=== PATIENT | female | born 1930 | race Caucasian/White ===

== ENCOUNTER 2017-01-02 14:15 | Emergency (ER) | payer OTHER, MEDICARE ==
[2017-01-02 14:35] VITALS: TEMP 97.8; BMI 19.5
[2017-01-02 14:48] LABS: BASOPHIL 0.6 % (0-2.0); EOSINOPHIL 1.3 % (0-4.5); MCH 30.7 pg (25.7-33.7); MCHC 33.8 g/dl (32.0-36.0); NEUTROPHILS 65.2 % (42.8-82.8); PLATELET COUNT 135 K/MM3 (134-434); RDW 15.5 % (11.6-15.6); WHITE BLOOD COUNT 8.1 K/mm3 (4.0-10.8)
[2017-01-02 15:13] LABS: URINE APPEARANCE Clear; URINE BILIRUBIN Negative (NEGATIVE); URINE GLUCOSE (UA) Negative (NEGATIVE); URINE KETONE Negative (NEGATIVE); URINE LEUK ESTERASE Negative (NEGATIVE); URINE NITRITE Negative (NEGATIVE); URINE PROTEIN Negative (NEGATIVE); URINE UROBILINOGEN 0.2 (0.2-1.0)
[2017-01-02 15:16] LABS: URINE BLOOD Trace-intact (NEGATIVE); URINE COLOR LT.YELLOW
[2017-01-02 15:23] LABS: ALBUMIN 4.2 g/dl (3.5-5.0); ALK PHOS 78 U/L (32-92); ANION GAP 9 (8-16); BILIRUBIN,TOTAL 1.1 mg/dl (0.2-1.0); CO2 24 mmol/L (22-28); CREATININE 0.7 mg/dl (0.6-1.3); GLUCOSE,RANDOM 98 mg/dl (74-106); MAGNESIUM 1.6 mg/dL (1.8-2.4); PHOSPHOROUS 2.9 mg/dl (2.5-4.6); SGOT/AST 35 U/L (10-42); SGPT/ALT 20 U/L (10-40); TOT PROT 6.9 g/dl (6.4-8.3)
[2017-01-02 15:23] LABS: CPK(DFH) 38 IU/L (26-140)
[2017-01-02 16:06] LABS: TROPONIN I (DFP) < 0.03 ng/ml (0.03-0.50)
--- NOTE | 2017-01-02 16:14 | PDOC ---
Attending Attestation - Resident Resident Name: WhitneySuhail - ED Attending Attestation I have performed the following: I have examined & evaluated the patient, The case was reviewed & discussed with the resident, I agree w/resident's findings & plan, Exceptions are as noted - HPI HPI: 01/02/17 16:11 Agree with the resident's HPI as documented in the electronic medical record. - Physicial Exam PE: 01/02/17 16:12 Agree with the resident's physical examination as documented in the electronic medical record. - Medical Decision Making 01/02/17 16:12 86-year-old female with history of hypertension and coronary artery disease, aortic valve replacement and chronic dizziness who presents to the emergency Department with complaints of feeling off balance and feeling dehydrated. Differential diagnosis includes but is not limited to: CVA, intracranial process , electrolyte abnormality, dehydration, infection (pneumonia versus UTI), ACS, cardiac arrhythmia, toxic/metabolic derangement. Plan: 1. Labs 2. EKGshows normal sinus rhythm at 90 bpm with normal axis, intervals and no acute ST segment changes 3. Chest x-ray 4. CT head 5. Urine analysis 6. Observe and reevaluate Addendum: Labs are reviewed and are noted in the EMR. Chest x-ray and CT head are negative for acute process. The patient is feeling improved. The plan is to discharge the patient home with follow-up with her primary care physician within the next 2-3 days. I have advised the patient to return to the emergency department if her symptoms persist, worsen, or new symptoms arise.
[2017-01-02 16:43] LABS: CALCIUM 9.3 mg/dl (8.4-10.2)
[2017-01-02 17:03] VITALS: BP 164/52; PULSE 78
--- NOTE | 2017-01-02 17:28 | PDOC ---
History of Present Illness - General Chief Complaint: Lightheaded Stated Complaint: "FEEL WOBBLY..DEHYDRATED" Time Seen by Provider: 01/02/17 14:18 History Source: Patient, Family Exam Limitations: No Limitations - History of Present Illness Initial Comments: 01/02/17 17:18 86F with pmh of hypothyroidism, aortic valve replacement and double bypass presents with dizziness and complains of being off balance for she thinks is due to dehydration given her low thirst drive. She has had this problem before and is taking meclizine for chronic vertigo.l Patient denies recent trauma, fall, nausea, vomiting, dysuria or diarrhea, fever cough or viral syndrome. 01/02/17 17:29 01/02/17 17:33 Past History - Past Medical History Allergies/Adverse Reactions: Allergies Allergy/AdvReac Type Severity Reaction Status Date / Time azithromycin Allergy Verified 01/02/17 14:18 clindamycin Allergy Verified 01/02/17 14:18 diltiazem Allergy Verified 01/02/17 14:18 hydroxychloroquine Allergy Verified 01/02/17 14:18 lidocaine Allergy Verified 01/02/17 14:18 naproxen Allergy Verified 01/02/17 14:18 rosuvastatin calcium Allergy Verified 01/02/17 14:18 [From Crestor] Home Medications: Ambulatory Orders Aspirin [Aspirin EC] 81 mg PO DAILY 01/13/14 Atorvastatin Ca [Lipitor -] 40 mg PO HS 01/13/14 Cholecalciferol (Vitamin D3) [Vitamin D3] 2,000 unit PO DAILY 01/13/14 Levothyroxine [Synthroid -] 50 mcg PO DAILY 01/13/14 Meclizine HCl [Antivert -] 12.5 mg PO BID 12/19/14 Ubidecarenone [Co Q-10] 300 mg PO DAILY 12/19/14 Diltiazem HCl [Cartia Xt] 180 mg PO BID 01/02/17 Cardiac Disorders: Yes HTN: Yes Hypercholesterolemia: Yes Thyroid Disease: Yes - Surgical History Cardiac Surgery: Yes (AVR, CABG X2) - Psycho/Social/Smoking Cessation Hx Anxiety: No Suicidal Ideation: No Smoking History: Never smoked Have you smoked in the past 12 months: No Information on smoking cessation initiated: No Hx Alcohol Use: (glass of wine nightly) Substance Use Type: None *Physical Exam - Vital Signs Last Vital Signs Temp Pulse Resp BP Pulse Ox 97.8 F 78 22 164/52 99 01/02/17 14:15 01/02/17 17:02 01/02/17 17:02 01/02/17 17:02 01/02/17 14:15 - Physical Exam General Appearance: Yes: Nourished, Appropriately Dressed, Thin. No: Apparent Distress HEENT: positive: EOMI, SAMIR (wet/pink mucous membranes), Normal ENT Inspection Neck: positive: Supple. negative: Tender, Lymphadenopathy (R), Lymphadenopathy (L), Thyromegaly Respiratory/Chest: positive: Lungs Clear, Normal Breath Sounds. negative: Chest Tender, Respiratory Distress, Decreased Breath Sounds Cardiovascular: positive: Regular Rhythm, Regular Rate. negative: S1, S2 Gastrointestinal/Abdominal: positive: Normal Bowel Sounds, Flat, Soft. negative : Distended, Tenderness Musculoskeletal: positive: Normal Inspection Extremity: positive: Normal Capillary Refill, Normal Range of Motion, Pelvis Stable. negative: Pedal Edema, Swelling, Calf Tenderness, Erythema Integumentary: positive: Normal Color. negative: Clammy, Diaphoresis, Swelling Neurologic: positive: rural route carrier II-XII NML intact, Fully Oriented, Alert, Normal Mood/ Affect, Normal Response (romberg negative. Normal gait), Motor Strength 5/5 ED Treatment Course - LABORATORY CBC & Chemistry Diagram: 01/02/17 14:18 01/02/17 14:18 - ADDITIONAL ORDERS Additional order review: Laboratory Results 01/02/17 01/02/17 01/02/17 15:02 14:19 14:18 Sodium 134 L Potassium 3.8 Chloride 101 Carbon Dioxide 24 Anion Gap 9 BUN 14 Creatinine 0.7 Creat Clearance w eGFR > 60 Random Glucose 98 Calcium 9.3 Phosphorus 2.9 Magnesium 1.6 L Total Bilirubin 1.1 H D AST 35 D ALT 20 Alkaline Phosphatase 78 D Creatine Kinase 38 Troponin I < 0.03 L Total Protein 6.9 Albumin 4.2 Urine Color Lt.yellow Urine Appearance Clear Urine pH 7.0 Ur Specific Victor 1.010 Urine Protein Negative Urine Glucose (UA) Negative Urine Ketones Negative Urine Blood Trace-intact H Urine Nitrite Negative Urine Bilirubin Negative Urine Urobilinogen 0.2 Ur Leukocyte Esterase Negative 01/02/17 14:18 RBC 3.79 MCV 91.0 MCHC 33.8 RDW 15.5 MPV 8.0 D Neutrophils % 65.2 Lymphocytes % 25.9 Monocytes % 7.0 Eosinophils % 1.3 Basophils % 0.6 Medical Decision Making - Medical Decision Making 01/02/17 17:33 86F with pmh of hypothyroidism, aortic valve replacement and double bypass presents with dizziness and complains of being off balance for she thinks is due to dehydration given her low thirst drive. She has had this problem before and is taking meclizine for chronic vertigo. Patient denies recent trauma, fall, nausea, vomiting, dysuria or diarrhea, fever cough or viral syndrome. CBC, CMP neg, R/O metabolic etiology Pending TSH - follow up with primary in 2-[address] r/o stroke FORMULATION CHEMIST etiology, Negative EKG negative r/o NM CXR r/o pneumonia negative Follow up with primary, and product marketing programs manager for blood pressure control. Come back if symptoms reoccur until then. 01/02/17 17:40 *DC/Admit/Observation/Transfer Diagnosis at time of Disposition: Dehydration, Dizziness, Dehydration, mild - Discharge Dispostion Condition at time of disposition: Good Admit: No - Referrals Referrals: Kenney Holguin MD [Primary Care Provider] - - Patient Instructions Printed Discharge Instructions: Dehydration
[2017-01-02 18:39] LABS: URINE RBC 0-2 /hpf (0-3); URINE WBC 0-1 (3-5)
--- NOTE | 2017-01-04 15:12 | EKG ---
Test Reason : Blood Pressure : / mmHG Vent. Rate : 092 BPM Atrial Rate : 092 BPM P-R Int : 170 ms QRS Dur : 088 ms QT Int : 372 ms P-R-T Axes : 079 048 102 degrees QTc Int : 460 ms SINUS RHYTHM POSSIBLE LEFT ATRIAL ENLARGEMENT NO PREVIOUS ECGS AVAILABLE Confirmed by RADHA DAUGHERTY MD ([id number] on 01/04/2017 3:12:38 PM Referred By: BARBRA WHEELER Confirmed By:RADHA DAUGHERTY MD
== END 2017-01-02 17:49 | disposition home or self-care (01) ==
LOC: FER 14:15
DX: E86.0 Dehydration (principal); R42 Dizziness and giddiness; E03.9 Hypothyroidism, unspecified; I10 Essential (primary) hypertension; E78.00 Pure hypercholesterolemia, unspecified; I51.9 Heart disease, unspecified
CPT/HCPCS: 36415; 70450-TC; 71010-TC; 80053; 81003; 81015; 82550; 83735; 84100; 84443; 84484; 85025; 93005; 99284-25

== ENCOUNTER 2018-07-24 12:14 | Emergency (ER) | payer OTHER, MEDICARE ==
[2018-07-24 12:31] VITALS: TEMP 98.1; BMI 18.4
--- NOTE | 2018-07-24 12:31 | PDOC ---
Attending Attestation - Resident Resident Name: Wm Davis - HPI HPI: 07/24/18 18:47 Pt presents to the ED complaining of intermittent chest discomfort x 1 week. She describes the sensation as a "wave" that goes from her chest to her back. Denies shortness of breath. Denies pain. - Physicial Exam PE: 07/24/18 18:52 Agree with resident exam. Patient is alert and in no acute distress. Lungs are clear. Heart: + regular rate and rhythm, + systolic murmur. - Medical Decision Making 07/24/18 19:01 Pt presents to the ED complaining of transient episodes of chest discomfort for one week. Symptoms are very atypical of cardiac disease. EKG and CXR are negative Will discharge home with referral to PMD. Case discussed with hand stamper.
--- NOTE | 2018-07-24 12:43 | PDOC ---
History of Present Illness - General Chief Complaint: Pain, Acute Stated Complaint: CHEST PAIN Time Seen by Provider: 07/24/18 12:17 - History of Present Illness Initial Comments: 07/24/18 12:38 Ms. 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 Patient reports she has additionally had 6 month history of KACI LE weakness that has worsened in the past few days. Denies any other associated symptoms. The patient denies chest pain, shortness of breath, headache and dizziness. Denies fever, chills, nausea, vomit, diarrhea and constipation. Denies dysuria, frequency, urgency and hematuria. Past History - Past Medical History Allergies/Adverse Reactions: Allergies Allergy/AdvReac Type Severity Reaction Status Date / Time azithromycin Allergy Verified 07/24/18 12:15 clindamycin Allergy Verified 07/24/18 12:15 diltiazem Allergy Verified 07/24/18 12:15 hydroxychloroquine Allergy Verified 07/24/18 12:15 lidocaine Allergy Verified 07/24/18 12:15 naproxen Allergy Verified 07/24/18 12:15 rosuvastatin calcium Allergy Verified 07/24/18 12:15 [From Crestor] Home Medications: Ambulatory Orders Aspirin [Aspirin EC] 81 mg PO DAILY 01/13/14 Levothyroxine [Synthroid -] 50 mcg PO DAILY 01/13/14 Diltiazem HCl [Cartia Xt] 180 mg PO BID 01/02/17 Cardiac Disorders: Yes COPD: No HTN: Yes Hypercholesterolemia: Yes Thyroid Disease: Yes - Surgical History Cardiac Surgery: Yes (AVR, CABG X2) - Suicide/Smoking/Psychosocial Hx Smoking History: Never smoked Have you smoked in the past 12 months: No Hx Alcohol Use: No Drug/Substance Use Hx: No Substance Use Type: None Review of Systems - Review of Systems Comments:: 07/24/18 12:42 GENERAL/CONSTITUTIONAL: No fever or chills. No weakness. HEAD, EYES, EARS, NOSE AND THROAT: No change in vision. No ear pain or discharge. No sore throat. CARDIOVASCULAR: +Chest "sensation" (patient refuses to call it pain) radiating to back RESPIRATORY: No cough, wheezing, or hemoptysis. GASTROINTESTINAL: No nausea, vomiting, diarrhea or constipation. GENITOURINARY: No dysuria, frequency, or change in urination. MUSCULOSKELETAL: No joint or muscle swelling or pain. No neck or back pain. SKIN: No rash NEUROLOGIC: No headache, vertigo, loss of consciousness, or change in strength/ sensation. ENDOCRINE: No increased thirst. No abnormal weight change HEMATOLOGIC/LYMPHATIC: No anemia, easy bleeding, or history of blood clots. ALLERGIC/IMMUNOLOGIC: No hives or skin allergy. *Physical Exam - Vital Signs Last Vital Signs Temp Pulse Resp BP Pulse Ox 98.1 F 78 18 189/73 H 98 07/24/18 12:15 07/24/18 12:15 07/24/18 12:15 07/24/18 12:15 07/24/18 12:15 - Physical Exam Comments: 07/24/18 12:42 GENERAL: Awake, alert, and fully oriented, in no acute distress HEAD: No signs of trauma, normocephalic, atraumatic EYES: PERRLA, EOMI, sclera anicteric, conjunctiva clear ENT: Auricles normal inspection, hearing grossly normal, nares patent, oropharynx clear without exudates. Moist mucosa NECK: Normal ROM, supple, no lymphadenopathy, JVD, or masses LUNGS: No distress, speaks full sentences, clear to auscultation bilaterally HEART: +Systolic murmur c/w replaced aortic valve. Regular rate and rhythm, normal S1 and S2, no murmurs, rubs or gallops, peripheral pulses normal and equal bilaterally. ABDOMEN: Soft, nontender, normoactive bowel sounds. No guarding, no rebound. No masses EXTREMITIES: Normal inspection, Normal range of motion, no edema. No clubbing or cyanosis. NEUROLOGICAL: Cranial nerves II through XII grossly intact. Normal speech, normal gait, no focal sensorimotor deficits SKIN: Warm, Dry, normal turgor, no rashes or lesions noted. Moderate Sedation - Procedure Monitoring Vital Signs: Procedure Monitoring Vital Signs Temperature 98.1 F 07/24/18 12:15 Pulse Rate 78 07/24/18 12:15 Respiratory Rate 18 07/24/18 12:15 Blood Pressure 189/73 H 07/24/18 12:15 O2 Sat by Pulse Oximetry (%) 98 07/24/18 12:15 ED Treatment Course - LABORATORY CBC & Chemistry Diagram: 07/24/18 12:43 07/24/18 12:43 Medical Decision Making - Medical Decision Making 07/24/18 13:30 Ms. Santana is an 87 yo female w/ pmh as described who presents for evaluation of chest symptoms in the setting of significant cardiac history. Patient evaluated with labs as below for r/o cardiac, infectious, or metabolic process. All labs grossly wnl, EKG unchanged from previous, CXR negative. Discussed patient with ib[employer] bpm developer (Dr. Cerda") at [phone] who would like outpatient follow-up for stress test. Patient verbalized understanding and agreement and will comply. No concern for acute process at this time. Discharging to home. *DC/Admit/Observation/Transfer Diagnosis at time of Disposition: Sensation of chest pressure - Discharge Dispostion Disposition: HOME Condition at time of disposition: Stable - Referrals Referrals: Kenney Holguin MD [Primary Care Provider] - - Patient Instructions Printed Discharge Instructions: DI for Chest Pain Additional Instructions: You were evaluated today in the ER for your symptoms. No concerning findings were found on laboratory evaluation, chest Xray, or EKG. We discussed your presentation with your ibm bpm developer who recommended calling for an outpatient stress test next week. Please follow-up as discussed as soon as possible. Return to ER if any pain, fever, chills, shortness of breath, or other concerning symptoms. - Post Discharge Activity
[2018-07-24 12:52] LABS: BASO % 0.6 % (0-2.0); EOS % 0.8 % (0-4.5); HEMATOCRIT 38.3 % (32.4-45.2); HEMOGLOBIN 12.7 GM/dl (10.7-15.3); LYMPH % 23.3 % (8-40); MCH 31.9 pg (25.7-33.7); MCHC 33.2 g/dl (32.0-36.0); MEAN CELL VOLUME 96.1 fl (80-96); MONO % 8.4 % (3.8-10.2); NEUT % 66.9 % (42.8-82.8); PLATELET COUNT 152 K/MM3 (134-434); RBC 3.99 M/mm3 (3.60-5.2); RDW 13.9 % (11.6-15.6); WHITE BLOOD COUNT 6.6 K/mm3 (4.0-10.8)
[2018-07-24 12:59] LABS: ALBUMIN 4.4 g/dl (3.4-5.0); ALK PHOS 89 U/L (45-117); ANION GAP 11 MMOL/L (8-16); BILIRUBIN,TOTAL 0.8 mg/dl (0.2-1); BLOOD UREA NITROGEN 20 mg/dl (7-18); CALCIUM 9.6 mg/dl (8.5-10); CHLORIDE 102 mmol/L (98-107); CO2 23 mmol/L (21-32); CREATININE 0.7 mg/dl (0.55-1.3); GLUCOSE,RANDOM 104 mg/dl (74-106); POTASSIUM 4.1 mmol/L (3.5-5.1); SGOT/AST 31 U/L (15-37); SGPT/ALT 17 U/L (13-61); SODIUM 136 mmol/L (136-145); TOT PROT 7.4 g/dl (6.4-8.2)
[2018-07-24 13:39] VITALS: BP 179/81; PULSE 71
--- NOTE | 2018-07-25 14:43 | EKG ---
Test Reason : Blood Pressure : / mmHG Vent. Rate : 079 BPM Atrial Rate : 079 BPM P-R Int : 146 ms QRS Dur : 088 ms QT Int : 410 ms P-R-T Axes : 056 037 080 degrees QTc Int : 470 ms SINUS RHYTHM WITH PREMATURE ATRIAL COMPLEXES POSSIBLE LEFT ATRIAL ENLARGEMENT CANNOT RULE OUT INFERIOR INFARCT (CITED ON OR BEFORE 24-JUL-2018) ABNORMAL ECG Confirmed by Yeison Yusuf MD ([id number]) on 07/25/2018 2:43:20 PM Referred By: Confirmed By:Yeison Yusuf MD
== END 2018-07-24 13:47 | disposition home or self-care (01) ==
LOC: FER 12:14
DX: R07.89 Other chest pain (principal); I10 Essential (primary) hypertension; E78.5 Hyperlipidemia, unspecified; E03.9 Hypothyroidism, unspecified; Z95.2 Presence of prosthetic heart valve; Z95.1 Presence of aortocoronary bypass graft; Z88.1 Allergy status to other antibiotic agents; Z88.8 Allergy status to other drugs, medicaments and biological substances; Z79.82 Long term (current) use of aspirin
CPT/HCPCS: 36415; 71046-TC-FY; 80053; 82550; 84484; 85025; 93005; 99282-25

== ENCOUNTER 2018-09-09 08:31 | Emergency (ER) | payer OTHER, MEDICARE ==
--- NOTE | 2018-09-09 08:48 | PDOC ---
History of Present Illness - General Chief Complaint: Tachycardia Stated Complaint: RAPID HEART BEAT Time Seen by Provider: 09/09/18 08:48 - History of Present Illness Initial Comments: 09/09/18 08:50 Chief complaint: Rapid heartbeat History of present illness: After awakening this morning, patient felt palpitations which she felt was a rapid heartbeat, sensation persisted until arrival in the ER, but now has resolved. She has had episodes of what appeared to be some kind of tachycardia, is consulting a draw in hand, and had a monitor placed on her chest yesterday. She is uncertain exactly what the rhythm has been , though she recalls no mention of "fibrillation" she was placed on no new medication as yet since the onset of her symptoms. Review of systems: Denies any associated chest pain, shortness of breath, nausea , diaphoresis, generalized weakness or fatigue, malaise, abdominal pain, vomiting or diarrhea, visual or focal neurologic symptoms, dizziness, lightheadedness, vertigo. Remainder systems reviewed and negative Past medical history: Valve replacement, CAD with bypass at the same time, as well as pericardial stripping. Elevated cholesterol. Hypothyroidism. High blood pressure. Medications: Lipitor, Synthroid, Cartia XT, baby aspirin, vitamin D. Social history: No tobacco alcohol or nonprescription drugs. No dementia. Fully ambulatory and cares for self. Family history: Reviewed and noncontributory including early coronary artery disease, metabolic disease including diabetes, and cancer ALLERGIES: Naproxen, lisinopril, azithromycin, lidocaine, epinephrine, Crestor, diltiazem CD, clindamycin, hydrochlorothiazide, Zetia Physical exam: Alert and oriented well-developed well-nourished no acute distress cheerful and cooperative. She is asymptomatic at present Afebrile, vital signs normal including heart rate of 90 and regular apical PERRLA, fundi benign, ENT clear Neck supple without bruit mass or nodes Chest clear to P&A CV regular 90/m without rub or gallop pulses full and symmetric no JVD or edema no bruits there is a 2/6 early to mid systolic murmur at the left sternal border radiating to the apex. Abdomen nondistended. Soft without masses tenderness organomegaly Neurological C2 to 12 intact. Strength full and symmetric. No focal sensory or motor deficits. Gait stable and unimpaired Extremities no CCE Skin clear, no rash, adequate turgor and wet mucous membranes Impression: Possible episode of tachycardia this morning, now resolved. Under the care of a draw in hand, currently wearing a Holter monitor. Patient was not placed on any new medication at that time that her symptoms began several weeks ago, therefore it is likely that no serious arrhythmia was considered. There are no associated cardiac symptoms suggestive of acute coronary syndrome Plan: EKG and cardiac enzymes, monitoring, CBC and chemistries, and further evaluation depending on results. Contact draw in hand for further history and recommendations.. Past History - Past Medical History Allergies/Adverse Reactions: Allergies Allergy/AdvReac Type Severity Reaction Status Date / Time azithromycin Allergy Verified 07/24/18 12:15 clindamycin Allergy Verified 07/24/18 12:15 diltiazem Allergy Verified 07/24/18 12:15 ezetimibe [From Zetia] Allergy Verified 09/09/18 08:33 hydroxychloroquine Allergy Verified 07/24/18 12:15 lidocaine Allergy Verified 07/24/18 12:15 naproxen Allergy Verified 07/24/18 12:15 rosuvastatin calcium Allergy Verified 07/24/18 12:15 [From Crestor] Home Medications: Ambulatory Orders Aspirin [Aspirin EC] 81 mg PO DAILY 01/13/14 Levothyroxine [Synthroid -] 50 mcg PO DAILY 01/13/14 Atorvastatin Ca [Lipitor] 20 mg PO HS 09/09/18 Cholecalciferol (Vitamin D3) [D-2000] 2,000 unit PO DAILY 09/09/18 Diltiazem HCl [Cartia Xt] 180 mg PO BID 09/09/18 Ubidecarenone [Co Q-10] 300 mg PO DAILY 09/09/18 Cardiac Disorders: Yes COPD: No HTN: Yes Hypercholesterolemia: Yes Thyroid Disease: Yes - Surgical History Cardiac Surgery: Yes (AVR, CABG X2) - Suicide/Smoking/Psychosocial Hx Smoking History: Never smoked Have you smoked in the past 12 months: No Hx Alcohol Use: No Drug/Substance Use Hx: No Substance Use Type: None *Physical Exam - Vital Signs Last Vital Signs Temp Pulse Resp BP Pulse Ox 97.8 F 77 20 184/59 H 98 09/09/18 10:07 09/09/18 10:07 09/09/18 10:07 09/09/18 10:07 09/09/18 10:07 ED Treatment Course - LABORATORY CBC & Chemistry Diagram: 09/09/18 09:19 09/09/18 09:19 - ADDITIONAL ORDERS Additional order review: Laboratory Results 09/09/18 09/09/18 09:19 09:19 Sodium 137 Potassium 4.1 Chloride 104 Carbon Dioxide 26 Anion Gap 7 L BUN 13 Creatinine 0.7 Creat Clearance w eGFR 79.53 Random Glucose 104 Calcium 8.9 Total Bilirubin 1.0 AST 30 ALT 16 Alkaline Phosphatase 92 Creatine Kinase 28 Troponin I 0.03 Total Protein 7.0 Albumin 3.9 09/09/18 09:19 RBC 3.94 MCV 96.3 H MCHC 32.7 RDW 14.0 MPV 8.8 Neutrophils % 63.9 Lymphocytes % 21.8 Monocytes % 11.8 H Eosinophils % 2.1 Basophils % 0.4 Medical Decision Making - Medical Decision Making 09/09/18 10:19 EKG shows normal sinus rhythm 85/m, normal axes and intervals, biatrial enlargement, Q waves in the inferior leads, which were present in prior EKGs and which probably indicates old inferior wall HI, and nonspecific ST-T wave changes in the lateral leads, which have also been periodically present in the past, most notably in EKGs from 2017 in our files. CBC, chemistries, and cardiac enzymes without significant abnormalities Patient has been clinically stable, without cardiac related symptoms, and without tachycardia on the monitor since admission. Her draw in hand in [facility] was contacted by phone after faxing him the present EKG. He is evaluating the patient for paroxysmal atrial fibrillation and has decided to prescribe a rate control drugs. He recommends discharge and he will follow closely. Patient is fully ambulatory, asymptomatic, in no pain or other distress at discharge with daughter to follow-up as directed 09/09/18 10:22 Her systolic blood pressure, however, remains moderately elevated, and she is advised to have it rechecked in 24 hours, take her blood pressure medication as directed, rest and avoid vigorous physical activity until stable. Her draw in hand is aware. *DC/Admit/Observation/Transfer Diagnosis at time of Disposition: Intermittent palpitations - Discharge Dispostion Disposition: HOME Condition at time of disposition: Stable Decision to Admit order: No - Referrals - Patient Instructions Printed Discharge Instructions: DI for Palpitations Additional Instructions: See your draw in hand as soon as possible for further evaluation. He has been contacted by phone, has decided to prescribe additional medication. Have your blood pressure rechecked again in 24 hours. In the meantime rest relaxation and no vigorous physical activity. If it remains significantly elevated, Em draw in hand immediately. If your symptoms recur, or you develop additional symptoms of heart disease such as chest pain, shortness of breath, nausea, diaphoresis, return immediately to the closest emergency room. - Post Discharge Activity
[2018-09-09 08:50] VITALS: TEMP 97.8; BMI 18.8
[2018-09-09 09:37] LABS: BASO % 0.4 % (0-2.0); EOS % 2.1 % (0-4.5); HEMOGLOBIN 12.4 GM/dl (10.7-15.3); LYMPH % 21.8 % (8-40); MCH 31.4 pg (25.7-33.7); MCHC 32.7 g/dl (32.0-36.0); MEAN CELL VOLUME 96.3 fl (80-96); MEAN PLT VOLUME 8.8 fl (7.5-11.1); MONO % 11.8 % (3.8-10.2); NEUT % 63.9 % (42.8-82.8); PLATELET COUNT 146 K/MM3 (134-434); RBC 3.94 M/mm3 (3.60-5.2); WHITE BLOOD COUNT 5.8 K/mm3 (4.0-10.8)
[2018-09-09 09:44] LABS: ALBUMIN 3.9 g/dl (3.4-5.0); ALK PHOS 92 U/L (45-117); ANION GAP 7 MMOL/L (8-16); BLOOD UREA NITROGEN 13 mg/dl (7-18); CALCIUM 8.9 mg/dl (8.5-10); CHLORIDE 104 mmol/L (98-107); CO2 26 mmol/L (21-32); CREATININE 0.7 mg/dl (0.55-1.3); GLUCOSE,RANDOM 104 mg/dl (74-106); POTASSIUM 4.1 mmol/L (3.5-5.1); SGOT/AST 30 U/L (15-37); SGPT/ALT 16 U/L (13-61); SODIUM 137 mmol/L (136-145)
[2018-09-09 10:43] VITALS: BP 188/59; PULSE 76
--- NOTE | 2018-09-10 11:52 | EKG ---
Test Reason : Blood Pressure : / mmHG Vent. Rate : 085 BPM Atrial Rate : 085 BPM P-R Int : 154 ms QRS Dur : 086 ms QT Int : 396 ms P-R-T Axes : 078 054 084 degrees QTc Int : 471 ms NORMAL SINUS RHYTHM BIATRIAL ENLARGEMENT CANNOT RULE OUT INFERIOR INFARCT (CITED ON OR BEFORE 24-JUL-2018) ABNORMAL ECG WHEN COMPARED WITH ECG OF 24-JUL-2018 12:47, PREMATURE ATRIAL COMPLEXES ARE NO LONGER PRESENT NONSPECIFIC T WAVE ABNORMALITY, WORSE IN LATERAL LEADS Confirmed by DELLA BESS, MICHEAL ([id number]) on 09/10/2018 11:51:34 AM Referred By: HANY LUI Confirmed By:MICHEAL HULL MD
== END 2018-09-09 11:02 | disposition home or self-care (01) ==
LOC: FER 08:31
DX: R00.2 Palpitations (principal); I10 Essential (primary) hypertension; E78.00 Pure hypercholesterolemia, unspecified; E07.9 Disorder of thyroid, unspecified; I51.9 Heart disease, unspecified; I25.10 Atherosclerotic heart disease of native coronary artery without angina pectoris
CPT/HCPCS: 36415; 80053; 82550; 84484; 85025; 93005; 99284-25

== ENCOUNTER 2018-12-11 21:23 | Inpatient (IN) | payer OTHER, MEDICARE ==
--- NOTE | 2018-12-11 22:20 | PDOC ---
History of Present Illness - General Chief Complaint: Pain, Acute Stated Complaint: GAS PAIN Time Seen by Provider: 12/11/18 21:25 - History of Present Illness Initial Comments: This 88-year-old woman with a history of HTN/CAD/AVR/hypothyroidism/HLD presents with several hour history of mid epigastric pain and mild, transient nausea. The patient describes pain as occurring at approximately 4 PM today soon after she strained having a bowel movement. Large amount of soft stool was passed (no blood/mucus) after an unusual amount of straining. She denies any pain or nausea prior to the BM. She describes pain as worse in the midline epigastrium, steady and radiating to her back bilaterally. She has not been able to pass gas since onset of pain. She states she has never felt this pain before. When she arrived in the ER, she had a brief episode of nausea that resolved spontaneously.no chest pain/shortness of breath noted Multiple gallstones were seen on previous CT dated 06/25/17. The patient was unaware that she had gallbladder disease and denies any previous history of postprandial right upper quadrant or epigastric pain. No history of abdominal surgical procedure; No history of SBO Past History - Past Medical History Allergies/Adverse Reactions: Allergies Allergy/AdvReac Type Severity Reaction Status Date / Time azithromycin Allergy Verified 07/24/18 12:15 clindamycin Allergy Verified 07/24/18 12:15 diltiazem Allergy Verified 07/24/18 12:15 ezetimibe [From Zetia] Allergy Verified 09/09/18 08:33 hydroxychloroquine Allergy Verified 07/24/18 12:15 lidocaine Allergy Verified 07/24/18 12:15 naproxen Allergy Verified 07/24/18 12:15 rosuvastatin calcium Allergy Verified 07/24/18 12:15 [From Crestor] Home Medications: Ambulatory Orders Aspirin [Aspirin EC] 81 mg PO DAILY 01/13/14 Levothyroxine [Synthroid -] 50 mcg PO DAILY 01/13/14 Atorvastatin Ca [Lipitor] 20 mg PO HS 09/09/18 Cholecalciferol (Vitamin D3) [D-2000] 2,000 unit PO DAILY 09/09/18 Diltiazem HCl [Cartia Xt] 180 mg PO BID 09/09/18 Ubidecarenone [Co Q-10] 300 mg PO DAILY 09/09/18 Cardiac Disorders: Yes COPD: No HTN: Yes Hypercholesterolemia: Yes Thyroid Disease: Yes - Surgical History Cardiac Surgery: Yes (AVR, CABG X2) - Suicide/Smoking/Psychosocial Hx Smoking History: Unknown if ever smoked Have you smoked in the past 12 months: No Information on smoking cessation initiated: No Hx Alcohol Use: No Drug/Substance Use Hx: No Substance Use Type: None Review of Systems - Review of Systems Able to Perform ROS?: Yes Comments:: 12 point review of systems is negative except for what is noted in the history of present illness *Physical Exam - Vital Signs Last Vital Signs Temp Pulse Resp BP Pulse Ox 98.2 F 90 18 183/90 H 100 12/11/18 21:28 12/11/18 21:28 12/11/18 21:28 12/11/18 21:28 12/11/18 21:28 - Physical Exam Comments: GENERAL:Elderly female, alert and oriented X3 HEAD: Normal with no signs of trauma. EYES: PERRLA, EOMI, sclera anicteric, conjunctiva clear. ENT: Ears normal, nares patent, oropharynx clear without exudates. Dry mucous membranes. NECK: Normal range of motion, supple without lymphadenopathy, JVD, or masses. LUNGS: Breath sounds equal, clear to auscultation bilaterally. No wheezes, and no crackles. HEART:Regular rate and rhythm, normal S1 and S2 without murmur, rub or gallop. ABDOMEN:.normal bowel sounds Mild epigastric tenderness without rebound or guarding; No masses EXTREMITIES: Normal range of motion, no edema. No clubbing or cyanosis. No erythema, or tenderness. NEUROLOGICAL: Cranial nerves II through XII grossly intact. Normal speech. No focal neurological deficits. MUSCULOSKELETAL: Back non-tender to palpation, no CVA tenderness SKIN: Warm, Dry, normal turgor, no rashes or lesions noted. ED Treatment Course - LABORATORY CBC & Chemistry Diagram: 12/11/18 23:00 12/11/18 23:00 Progress Note - Progress Note Progress Note: This 88-year-old woman with multiple medical problems but no significant previous history of gastrointestinal issues presents with several hours of epigastric pain. Previous CT had shown multiple small gallstones and mild distal thoracic aortic dilatation; exam as above showed mild tenderness of the epigastrium but no other significant findings Differential diagnosis of this patient's pain includes gastritis/peptic ulcer disease, biliary colic/acute cholecystitis, early small bowel obstruction, acute pancreatitis, acute diverticulitis,progression of aortic aneurysm One view chest x-ray reveals mild hyperaeration of lungs but no acute abnormalities Flat and upright xray of abdomen performed: no abnormal gas pattern seen.Multiple small, radiodense stones in RUQ Laboratory evaluation notable for amylase 790 and lipase of 4793. 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 multiple gallstones are again seen with possible slight thickening of gallbladder wall. No other significant abnormalities. Clinical presentation consistent with acute pancreatitis , likely biliary etiology 12/12/18 02:21 Results discussed with the patient and her daughter. They understand that the patient needs to be admitted to be kept NPO and for close monitoring of her clinical course. Patient states that she will only be admitted to [facility] and refuses admission to [facility] 12/12/18 03:06 .The patient was contacted by telephone by and reasons for admission to [facility] discussed. Patient has agreed to be admitted to [facility]. Ultrasound of gallbladder and liver, originally scheduled now, will be performed in the morning. Patient will be admitted to [address] [place] [address] 71 Morphine sulfate 2 mg IV given for pain control 12/12/18 05:33 Patient transferred via BLS ambulance to [facility], alert and comfortable. in stable condition. She states that the one dose of Morphine 2 mg IV was effective so far in control of her pain. Nausea has not recurred *DC/Admit/Observation/Transfer Diagnosis at time of Disposition: Acute pancreatitis Qualifiers: Pancreatitis type: biliary Acute pancreatitis complication: no infection or necrosis Qualified Code(s): K85.10 - Biliary acute pancreatitis without necrosis or infection - Discharge Dispostion Condition at time of disposition: Stable Decision to Admit order: Yes - Referrals - Patient Instructions - Post Discharge Activity
[2018-12-11] MEDS ORDERED: SODIUM CHLORIDE 1,000 ML IV SCH (22:30)
[2018-12-11] MEDS ORDERED: METOCLOPRAMIDE HCL INJECTION 10 MG/2 ML VIAL IVPB ONE (23:03)
[2018-12-11] MEDS ORDERED: METOCLOPRAMIDE HCL INJECTION 10 MG/2 ML VIAL ONE (23:04)
[2018-12-11 23:13] LABS: BASO % 0.1 % (0-2.0); EOS % 0.2 % (0-4.5); HEMATOCRIT 40.6 % (32.4-45.2); HEMOGLOBIN 13.2 GM/dl (10.7-15.3); LYMPH % 12.1 % (8-40); MCH 31.1 pg (25.7-33.7); MCHC 32.4 g/dl (32.0-36.0); MEAN PLT VOLUME 8.7 fl (7.5-11.1); MONO % 6.8 % (3.8-10.2); NEUT % 80.8 % (42.8-82.8); PLATELET COUNT 176 K/MM3 (134-434); RBC 4.23 M/mm3 (3.60-5.2); RDW 14.1 % (11.6-15.6); WHITE BLOOD COUNT 11.6 K/mm3 (4.0-10.8)
[2018-12-11 23:22] LABS: INR 0.96 (0.82-1.09); PROTHROMBIN TIME (PATIENT) 10.8 SEC (10.2-13.0)
[2018-12-11 23:37] LABS: ALBUMIN 4.4 g/dl (3.4-5.0); CALCIUM 9.7 mg/dl (8.5-10); CREATININE 0.9 mg/dl (0.55-1.3); POTASSIUM 3.9 mmol/L (3.5-5.1); TOT PROT 7.8 g/dl (6.4-8.2)
[2018-12-12] MEDS ORDERED: SODIUM CHLORIDE 500 ML IV STA (02:04)
[2018-12-12] MEDS ORDERED: morphine CARPU-JECT 2 MG/1 ML DISP.SYRIN IVPUSH ONE (03:00)
[2018-12-12] MEDS ORDERED: morphine SULFATE 4 MG/ML VIAL ONE (03:10)
--- NOTE | 2018-12-12 05:56 | PN ---
Progress Note (short form) - Note Progress Note: Spoke with [facility]; patient with apparent gallstone pancreatitis with elevated LFTs; she initially refused XF to [facility] but when explained that she would likely need GI/surgical eval with complex diagnostics she was agreeable. Awaiting XF. Visit type - Emergency Visit Emergency Visit: Yes ED Registration Date: 12/12/18 Care time: The patient presented to the Emergency Department on the above date and was hospitalized for further evaluation of their emergent condition. - New Patient This patient is new to me today: Yes Date on this admission: 12/12/18 - Critical Care Critical Care patient: No
[2018-12-12] MEDS ORDERED: SODIUM CHLORIDE 1,000 ML IV SCH ×2 (08:06→11:15)
[2018-12-12 08:42] LABS: BASO % 0.1 % (0-2.0); HEMATOCRIT 40.1 % (32.4-45.2); HEMOGLOBIN 13.3 GM/dL (10.7-15.3); LYMPH % 5.8 % (8-40); MCH 31.3 pg (25.7-33.7); MCHC 33.2 g/dl (32.0-36.0); MEAN CELL VOLUME 94.3 fl (80-96); MONO % 6.1 % (3.8-10.2); RBC 4.25 M/mm3 (3.60-5.2); RDW 14.7 % (11.6-15.6); WHITE BLOOD COUNT 10.9 K/mm3 (4.0-10.0)
[2018-12-12 08:43] LABS: INR 0.93 (0.83-1.09)
[2018-12-12 08:54] LABS: BILIRUBIN,DIRECT 0.2 mg/dL (0.0-0.2); BILIRUBIN,TOTAL 0.6 mg/dL (0.2-1); CALCIUM 8.9 mg/dL (8.5-10.1); CREATININE 0.7 mg/dL (0.55-1.3); POTASSIUM 3.5 mmol/L (3.5-5.1); TOT PROT 7.3 g/dl (6.4-8.2)
[2018-12-12 09:03] LABS: PLATELET COUNT 138 K/MM3 (134-434)
[2018-12-12] MEDS ORDERED: LORazepam 2 MG/ML SDV VIAL IVPUSH ONE ×2 (10:26→17:59)
[2018-12-12] MEDS ORDERED: D5-1/2NS+20 MEQ KCL - 20 MEQ/1,000 ML INFUS.BAG IV SCH (10:30)
--- NOTE | 2018-12-12 10:35 | CON.GI ---
Consult Consult Specialty:: GI: For Dr. Carvajal Referred by:: Hospitalist Service Reason for Consultation:: Abdominal pain - History of Present Illness Chief Complaint: I was constipated and strained yesterday, then began having pain History of Present Illness: 88F in USOH up until yesterday. She states that she felt constipated throughout the day, had a strained bowel movement at 4pm then began experiencing diffuse abdominal pain, more focused in the mid and right abdomen. There was some epigastric discomfort as well, however it resolved. She describes nausea, however, there was no vomiting. On admission, she had a leukocytosis, amylase/ lipase were elevated as were transaminases/ALP (normal in 09/01 in review of [facility]). CT scan of abdomen/pelvis read by nichole described gallstones, possible thickened gallbladder wall and renal cysts. She continues have abdominal pain. 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 one of her sisters may have had colon cancer at age 27. She denies any change in her medications. 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 Place of : [facility] History of Recent Travel: No Home Medications - Allergies Allergies/Adverse Reactions: Allergies Allergy/AdvReac Type Severity Reaction Status Date / Time azithromycin Allergy Verified 07/24/18 12:15 clindamycin Allergy Verified 07/24/18 12:15 diltiazem Allergy Verified 07/24/18 12:15 ezetimibe [From Zetia] Allergy Verified 09/09/18 08:33 hydroxychloroquine Allergy Verified 07/24/18 12:15 lidocaine Allergy Verified 07/24/18 12:15 naproxen Allergy Verified 07/24/18 12:15 rosuvastatin calcium Allergy Verified 07/24/18 12:15 [From Crestor] - Home Medications Home Medications: Ambulatory Orders Aspirin [Aspirin EC] 81 mg PO DAILY 01/13/14 Levothyroxine [Synthroid -] 50 mcg PO DAILY 01/13/14 Atorvastatin Ca [Lipitor] 20 mg PO DAILY 09/09/18 Cholecalciferol (Vitamin D3) [D-2000] 2,000 unit PO DAILY 09/09/18 Diltiazem HCl [Cartia Xt] 180 mg PO BID 09/09/18 Ubidecarenone [Co Q-10] 300 mg PO DAILY 09/09/18 Family Disease History - Family Disease History Family Disease History: Other: Father (: 60's: ALS), Mother (: 104), Brother (1 : 27: heart problem), Sister (2, (Twin) suspeted metastatic melanoma of eye. 1 of cancer age 27 ) Review of Systems - Review of Systems Constitutional: denies: Chills, Fever Respiratory: reports: Cough Gastrointestinal: reports: Abdominal Pain, Constipation, Nausea. denies: Diarrhea, Indigestion, Rectal Bleeding, Vomiting Physical Exam-GI Vital Signs: Vital Signs Temperature 98.1 F 12/12/18 02:15 Pulse Rate 85 12/12/18 03:36 Respiratory Rate 18 12/12/18 02:15 Blood Pressure 190/71 H 12/12/18 02:15 O2 Sat by Pulse Oximetry (%) 98 12/12/18 03:36 Constitutional: Yes: Calm Eyes: No: Sclera Icterus Cardiovascular: Yes: Regular Rate and Rhythm, Murmur Respiratory: Yes: CTA Bilaterally Gastrointestinal Inspection: Yes: Scars. No: Distention ...Auscultate: Yes: Normoactive Bowel Sounds ...Palpate: Yes: Soft, Tenderness (TTP diffusely R/L). No: Guarding, Tenderness , Rebound ...Percussion: No: Tympanitic ...Rectal Exam: Yes: Other (No external lesions, no masses, scant brown stool, no fecal impaction, guaiac negative) Edema: No (No LE edema) Neurological: Yes: Alert, Oriented Labs: Hepatic Panel Total Bilirubin 0.6 mg/dL (0.2-1) 12/12/18 08:03 Direct Bilirubin 0.2 mg/dL (0.0-0.2) 12/12/18 08:03 AST 120 U/L (15-37) H 12/12/18 08:03 ALT 103 U/L (13-61) H 12/12/18 08:03 Alkaline Phosphatase 168 U/L (45-117) H 12/12/18 08:03 Albumin 4.0 g/dl (3.4-5.0) 12/12/18 08:03 CBC, BMP 12/12/18 08:03 12/12/18 08:03 INR, PTT INR 0.93 (0.83-1.09) 12/12/18 08:03 Imaging - Results Cat Scan: Report Reviewed (CT scan read [facility]: gallstones, thickened GB wall, renal cysts. No mention of pancreas. I reviewed the images: haziness in the right and mid abdomen, not able to describe pancreas very well. D/W Dr. Noriega, radiologist, who will review the study) Problem List - Problems (1) Abdominal pain Assessment/Plan: Labs suggestive of possible pancreatitis. Liver chemistries may suggest passed passage of gallstone as well with possible concomitant acute cholecystitis vs. secondary to adjacent inflammatory process of the pancreas. I reviewed CT the images: haziness in the right and mid abdomen and I was not able to visualize pancreas very well. I D/W Dr. Noriega, radiologist, who will review the study. Advise in the interim: NPO IV Hydration Surgical consultation Pain control IV Abx for possible cholecystitis MRCP to further evaluate biliary tract AM Labs Code(s): R10.9 - UNSPECIFIED ABDOMINAL PAIN Qualifiers: Abdominal location: generalized Qualified Code(s): R10.84 - Generalized abdominal pain
[2018-12-12] MEDS ORDERED: ONDANSETRON 4 MG/2 ML VIAL IVPUSH PRN (10:51)
--- NOTE | 2018-12-12 10:51 | HP ---
CHIEF COMPLAINT: abdominal pain PCP: Dr. Holguin GI: Dr. Carvajal Cardiology: Dr. Siddiqi HISTORY OF PRESENT ILLNESS: 88 yof with PMHx of CAD s/p CABG (6 years ago), HTN, HLD was in her USOH, when after straining to have BM had sudden onset of band like generalized abdominal pain, more in the upper abdomen, sharp persistent, associated with vomitting x 1 non bloody, prompting her to come to the ED. Has glass of wine daily. Denies any fevers, chills, similar prior history, chest pain, palpitations, dyspnea, dizziness or dyspepsia with fatty food before the same, any change in medications. 12 point ROS done, fairly active, neg for exertional dyspnea, chest pain or concerns. Recent Travel: Denies PAST MEDICAL HISTORY: CAD s/p CABG, HTN, HLD PAST SURGICAL HISTORY: CABG Social History: Smoking: denies Alcohol: glass of wine daily Drugs: denies retired, son lives with him on weekdays, independent in ADLs Family History: Allergies azithromycin Allergy (Verified 07/24/18 12:15) clindamycin Allergy (Verified 07/24/18 12:15) diltiazem Allergy (Verified 07/24/18 12:15) ezetimibe [From Zetia] Allergy (Verified 09/09/18 08:33) hydroxychloroquine Allergy (Verified 07/24/18 12:15) lidocaine Allergy (Verified 07/24/18 12:15) naproxen Allergy (Verified 07/24/18 12:15) rosuvastatin calcium [From Crestor] Allergy (Verified 07/24/18 12:15) HOME MEDICATIONS: Home Medications Medication Instructions Recorded Aspirin [Aspirin EC] 81 mg PO DAILY 01/13/14 Levothyroxine [Synthroid -] 50 mcg PO DAILY 01/13/14 Atorvastatin Ca [Lipitor] 20 mg PO DAILY 09/09/18 Cholecalciferol (Vitamin D3) 2,000 unit PO DAILY 09/09/18 [D-1999] Diltiazem HCl [Cartia Xt] 180 mg PO BID 09/09/18 Ubidecarenone [Co Q-10] 300 mg PO DAILY 09/09/18 Intake & Output 12/09/18 12/10/18 12/11/18 12/12/18 23:59 23:59 23:59 23:59 Intake Total 1500 Balance 1500 Weight 105 lb 13.15 oz REVIEW OF SYSTEMS 12 point ROS done, neg except. PHYSICAL EXAMINATION Vital Signs - 24 hr 12/11/18 12/12/18 12/12/18 21:28 02:15 03:36 Temperature 98.2 F 98.1 F Pulse Rate 90 Pulse Rate [ 94 H 85 Radial] Respiratory 18 18 Rate Blood Pressure 183/90 H Blood Pressure 190/71 H [Arm] O2 Sat by Pulse 100 98 98 Oximetry (%) Intake & Output 12/09/18 12/10/18 12/11/18 12/12/18 23:59 23:59 23:59 23:59 Intake Total 1500 Balance 1500 Weight 105 lb 13.15 oz GENERAL: Awake, alert, and fully oriented, in no acute distress. HEAD: Normal with no signs of trauma. EYES: Pupils equal, round and reactive to light, extraocular movements intact, sclera anicteric, conjunctiva clear. No lid lag. EARS, NOSE, THROAT: Ears normal, nares patent, oropharynx clear without exudates. Moist mucous membranes. NECK: Normal range of motion, supple, no JVD LUNGS: Breath sounds equal, clear to auscultation bilaterally. No wheezes, and no crackles. No accessory muscle use. HEART: Regular rate and rhythm, normal S1 and S2 ABDOMEN: Soft, tenderness in stephen-umubilcal region and upper abdominal region, generalized tenderness with voluntary guarding in upper abdomen but no clear louis's sign elicited ,no involuntary guarding or rigidity, pos bowel sounds MUSCULOSKELETAL: Normal range of motion at all joints. No bony deformities or tenderness. No CVA tenderness. UPPER EXTREMITIES: 2+ pulses, warm, well-perfused. No cyanosis. No clubbing. No peripheral edema. LOWER EXTREMITIES: 2+ pulses, warm, well-perfused. No calf tenderness. No peripheral edema. NEUROLOGICAL: AAOx3, Cranial nerves II-XII intact. Normal speech. Gait not observed PSYCHIATRIC: Cooperative. Good eye contact. Appropriate mood and affect. SKIN: Warm, dry, normal turgor, no rashes or lesions noted, normal capillary refill. Laboratory Results - last 24 hr 12/11/18 12/11/18 12/11/18 23:00 23:00 23:00 WBC 11.6 H RBC 4.23 Hgb 13.2 Hct 40.6 MCV 96.0 MCH 31.1 MCHC 32.4 RDW 14.1 Plt Count 176 MPV 8.7 Absolute Neuts (auto) 9.4 Neutrophils % 80.8 Lymphocytes % 12.1 Monocytes % 6.8 Eosinophils % 0.2 Basophils % 0.1 Nucleated RBC % PT with INR INR Sodium 135 L Potassium 3.9 Chloride 105 Carbon Dioxide 22 Anion Gap 8 BUN 21.0 H Creatinine 0.9 Est GFR (CKD-EPI)AfAm 67.10 Est GFR (CKD-EPI)NonAf 57.90 Random Glucose 127 H Lactic Acid Calcium 9.7 Total Bilirubin 1.0 Direct Bilirubin AST 188 H ALT 117 H Alkaline Phosphatase 177 H Creatine Kinase 32 Troponin I 0.03 Total Protein 7.8 Albumin 4.4 Total Amylase 790 H Lipase 4793 H Urine Color Urine Appearance Urine pH Urine Protein Urine Glucose (UA) Urine Ketones Urine Blood Urine Nitrite Urine Bilirubin Urine Urobilinogen Ur Leukocyte Esterase Urine RBC Urine WBC 12/11/18 12/11/18 12/12/18 23:00 23:00 02:32 WBC RBC Hgb Hct MCV MCH MCHC RDW Plt Count MPV Absolute Neuts (auto) Neutrophils % Lymphocytes % Monocytes % Eosinophils % Basophils % Nucleated RBC % PT with INR 10.8 INR 0.96 L Sodium Potassium Chloride Carbon Dioxide Anion Gap BUN Creatinine Est GFR (CKD-EPI)AfAm Est GFR (CKD-EPI)NonAf Random Glucose Lactic Acid 1.0 Calcium Total Bilirubin Direct Bilirubin AST ALT Alkaline Phosphatase Creatine Kinase Troponin I Total Protein Albumin Total Amylase Lipase Urine Color Yellow Urine Appearance Clear Urine pH 6.5 Urine Protein 1+ H Urine Glucose (UA) Negative Urine Ketones 1+ H Urine Blood Negative Urine Nitrite Negative Urine Bilirubin Negative Urine Urobilinogen 0.2 Ur Leukocyte Esterase Negative Urine RBC 0-2 Urine WBC 0-2 12/12/18 12/12/18 12/12/18 08:03 08:03 08:03 WBC 10.9 H RBC 4.25 Hgb 13.3 Hct 40.1 MCV 94.3 MCH 31.3 MCHC 33.2 RDW 14.7 Plt Count 138 MPV 9.0 Absolute Neuts (auto) 9.6 H Neutrophils % 88.0 H Lymphocytes % 5.8 L Monocytes % 6.1 Eosinophils % 0.0 Basophils % 0.1 Nucleated RBC % 0 PT with INR 11.00 INR 0.93 Sodium 139 Potassium 3.5 Chloride 104 Carbon Dioxide 26 Anion Gap 8 BUN 13.0 Creatinine 0.7 Est GFR (CKD-EPI)AfAm 90.93 Est GFR (CKD-EPI)NonAf 78.45 Random Glucose 118 H Lactic Acid Calcium 8.9 Total Bilirubin 0.6 Direct Bilirubin 0.2 AST 120 H ALT 103 H Alkaline Phosphatase 168 H Creatine Kinase Troponin I Total Protein 7.3 Albumin 4.0 Total Amylase Lipase 2491 H Urine Color Urine Appearance Urine pH Urine Protein Urine Glucose (UA) Urine Ketones Urine Blood Urine Nitrite Urine Bilirubin Urine Urobilinogen Ur Leukocyte Esterase Urine RBC Urine WBC CT a/P, chest prelim results reviewed, await office read Gall bladder ultrasound results noted EKG NSR, LVH, no acute ST-T changes ASSESSMENT/PLAN: 88 yof with PMHx of CAD s/p CABG, HTN, HLD with acute gall stone pancreatitis +/ - acute cholecystitis -Acute gallstone pancreatitis+/- cholecystitis -Abnormal LFTs, from above -Uncontrolled HTN, suspect from pain, unable to get meds and underlying poorly controlled BP -HLD -CAD s/p CABG Plan: NPO, IVF, supportive tx morphine/zofran. MRCP. GI consult Surgery consult as anticipate eventual cholecystectomy Blood cx. Emperic ceftriaxone/flagyl Cardiology input for pre-operative risk stratification. Continue Cartia XT (reports allergy to multiple other anti-HTN)/. Continue levothyroxine, Hold statin/ASA. GIPPX with Protonix DVTPPX lovenox Dispo pending clinical improvement. Plan discussed with patient and RN in detail, all questions answered. Total admit time 65 min . Visit type - Emergency Visit Emergency Visit: Yes ED Registration Date: 12/12/18 Care time: The patient presented to the Emergency Department on the above date and was hospitalized for further evaluation of their emergent condition. - New Patient This patient is new to me today: Yes Date on this admission: 12/12/18 - Critical Care Critical Care patient: No
[2018-12-12] MEDS: MORPHINE SULFATE 2 MG/ML VIAL IVPUSH PRN ×2 (11:29→18:15)
[2018-12-12] MEDS ORDERED: cefTRIAXone SODIUM 1 GM VIAL ONE (11:35)
[2018-12-12] MEDS ORDERED: DEXTROSE 5%-WATER - 50 ML IVPB ONE (11:36)
[2018-12-12] MEDS: D5-1/2NS+20 MEQ KCL - 20 MEQ/1,000 ML INFUS.BAG IV SCH (11:38)
[2018-12-12] MEDS: CEFTRIAXONE 1 GM in DEXTROSE 5%-WATER - 50 ML IVPB SCH (11:40)
[2018-12-12] MEDS: LEVOTHYROXINE NA 50 MCG TABLET (FP) PO SCH (11:41)
--- NOTE | 2018-12-12 12:57 | CON.CARD ---
Consult Consult Specialty:: cardio - History of Present Illness Chief Complaint: abd pain History of Present Illness: asked to see pt for preop cv risk stratification evmaude 88 F here with abd pain, diagnosed possible pancreatitis by labs and CT, surgical consult pending she has h/o CABG, bioAVR, pericardial stripping 6 yrs ago (Dr. Clinton, [place]) , sees Dr. Goins in [facility] for cardiology (and me for local needs). has done well since CTS with no chf or angina. denies prior h/o CO. walks 26 steps daily without stopping, no cp, sob. can carry light bags up as well. has known raynaud's, but denies h/o scleroderma or other CTDz or pulm htn (pt and dtr reliable historians--dtr works for hand [employer] bottom [employer] office and they are well informed regarding her medical history) had recent echo with her cardio, told bioAVR functioning well and no other signif abnormalities PMH: HTN, mult allergic reactions reportedly to prior meds s/p CABG, bioAVR, pericardial stripping HPL aortic aneurysm - Past Medical History Cardio/Vascular: Yes: CAD, HTN, Hyperlipdemia - Past Surgical History Past Surgical History: Yes: CABG, Valve Replacement (AVR (porcine)) - Alcohol/Substance Use Hx Alcohol Use: Yes (1 glass wine per night) History of Substance Use: reports: None - Smoking History Smoking history: Never smoked Have you smoked in the past 12 months: No - Social History Usual Living Arrangement: Alone () ADL: Independent 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 History of Recent Travel: No Home Medications - Allergies Allergies/Adverse Reactions: Allergies Allergy/AdvReac Type Severity Reaction Status Date / Time azithromycin Allergy Verified 07/24/18 12:15 clindamycin Allergy Verified 07/24/18 12:15 diltiazem Allergy Verified 07/24/18 12:15 ezetimibe [From Zetia] Allergy Verified 09/09/18 08:33 hydroxychloroquine Allergy Verified 07/24/18 12:15 lidocaine Allergy Verified 07/24/18 12:15 naproxen Allergy Verified 07/24/18 12:15 rosuvastatin calcium Allergy Verified 07/24/18 12:15 [From Crestor] - Home Medications Home Medications: Ambulatory Orders Aspirin [Aspirin EC] 81 mg PO DAILY 01/13/14 Levothyroxine [Synthroid -] 50 mcg PO DAILY 01/13/14 Atorvastatin Ca [Lipitor] 20 mg PO DAILY 09/09/18 Cholecalciferol (Vitamin D3) [D-2000] 2,000 unit PO DAILY 09/09/18 Diltiazem HCl [Cartia Xt] 180 mg PO BID 09/09/18 Ubidecarenone [Co Q-10] 300 mg PO DAILY 09/09/18 Family Disease History - Family Disease History Family Disease History: Other: Father (: 60's: ALS), Mother (: 104), Brother (1 : 27: heart problem), Sister (2, (Twin) suspeted metastatic melanoma of eye. 1 of cancer age 27 ) Review of Systems - Review of Systems Constitutional: denies: Chills, Fever Eyes: denies: Eye Pain HENT: denies: Nasal Congestion Neck: denies: Stiffness Cardiovascular: denies: Palpitations Respiratory: denies: Orthopnea, PND Gastrointestinal: reports: Vomiting. denies: Diarrhea, Rectal Bleeding Genitourinary: denies: Burning, Hematuria Musculoskeletal: denies: Muscle Pain Integumentary: denies: Rash Neurological: denies: Numbness, Seizure, Syncope Endocrine: denies: Excessive Sweating Hematology/Lymphatic: denies: Excessive Bleeding Vital Signs: Vital Signs Temperature 98.1 F 12/12/18 02:15 Pulse Rate 85 12/12/18 03:36 Respiratory Rate 18 12/12/18 02:15 Blood Pressure 190/71 H 12/12/18 02:15 O2 Sat by Pulse Oximetry (%) 98 12/12/18 03:36 Constitutional: Yes: Well Nourished, No Distress, Thin Eyes: No: Sclera Icterus HENT: No: Nasal Congestion Neck: No: Decreased ROM Respiratory: Yes: CTA Bilaterally. No: Accessory Muscle Use, Rales, Wheezes Gastrointestinal: Yes: Normal Bowel Sounds. No: Distention, Hepatomegaly, Palpable Mass, Tenderness Cardiovascular: Yes: Regular Rate and Rhythm JVD: No Carotid Bruit: No PMI: Non-Displaced Heart Sounds: Yes: S1, S2. No: Gallop Murmur: No: Systolic Murmur, Diastolic Murmur Musculoskeletal: Yes: Other (No kyphosis) Extremities: No: Cool, Cyanosis Edema: No Peripheral Pulses: 2+ Left Carotid, 2+ Right Carotid, 2+ Left Doralis Pedis, 2+ Right Dorsalis Pedis Integumentary: No: Jaundice Neurological: Yes: Alert, Oriented (x3) Psychiatric: No: Agitated - Other Data Labs, Other Data: CBC, BMP 12/12/18 08:03 12/12/18 08:03 INR, PTT INR 0.93 (0.83-1.09) 12/12/18 08:03 Troponin, BNP 12/11/18 23:00 Troponin I 0.03 Troponin, BNP 12/11/18 23:00 Troponin I 0.03 Laboratory Tests 12/11/18 12/11/18 12/11/18 23:00 23:00 23:00 WBC Hgb Plt Count Sodium Potassium Carbon Dioxide BUN Creatinine Lactic Acid 1.0 AST ALT Alkaline Phosphatase Troponin I 0.03 Total Amylase 790 H Lipase 4793 H 12/12/18 12/12/18 08:03 08:03 WBC 10.9 H Hgb 13.3 Plt Count 138 Sodium 139 Potassium 3.5 Carbon Dioxide 26 BUN 13.0 Creatinine 0.7 Lactic Acid AST 120 H ALT 103 H Alkaline Phosphatase 168 H Troponin I Total Amylase Lipase Assessment/Plan ECG: NSR, LVH, biatrial abnormality. no signif ST-T, ? old IWMI (no signif change vs prior 09/01) CXR: clear lungs/pleura. lungs slightly hyperaerated possible acute pancreatitis, preop CV eval: -Revised CV Risk Index = 2, good functional capacity -no s/sx of ischemic heart dz or chf -she is medically optimized as far as cardiac status goes -at acceptable risk for surgery incl general anesthesia -known white coat htn--the bp here may be difficult to bring down prior to surgery--plan as below h/o CABG/bioAVR: -on aspirin, atorva 20 at home--held here (preop, NPO, ast/lt up) -no angina, no acute ischemia on ekg, trop neg x 1. no further w/u needed -routine outpt f/u (dr goins, [place]) HTN: -on Cartia XT 180 bid at home. cannot tolerate generic diltiazem (diffuse muscle aches), has h/o intolerances/reactions to mult meds (see list in chart). -also with known white coat HTN (runs 190 at md, comes to 140s-150s on repeat she says) -bp uncontrolled here--? related to acute abd pain, likely component of anxiet/ white coat effect based on her history -continue home Cartia XT dose, observe bp trend "thoracic aorta aneurysm" (+/-): -borderline dilation of descending thoracic aorta 3.7 cm on 07/2017 CT report-- unchanged on present study (measured as 3.5 cm) -routine bp, lipids mgmt--defer to outpt setting in light of prior med history, details of which are not known to me
[2018-12-12] MEDS: CARTIA XT 180 MG PO SCH ×2 (14:19→22:25)
[2018-12-12] MEDS ORDERED: ACETAMINOPHEN 1000 MG/100 ML VIAL (NON FORMULARY) IVPB PRN (14:47)
--- NOTE | 2018-12-12 14:54 | CONSULT ---
Consult Consult Specialty:: General Surgery Referred by:: Isaias Lau Reason for Consultation:: gallstone pancreatitis - History of Present Illness Chief Complaint: upper abdominal pain, constipation History of Present Illness: 88yo F with HTN, HLD, hypothyroidism, CAD s/p CABG x2 with porcine AVR, distal thoracic aortic aneurysm, presented to ER with upper abdominal pain becoming severe after straining to have BM yesterday. She noted some abdominal discomfort prior to trying to use the bathroom, and started trying to go around 10am, but wasn't able to until close to 4pm, at which time, with straining, finally had soft/mushy, copious stool. Then the pain returned in a band across upper abdomen. She had no F/C, some nausea, and was seen at [facility] ER, where she had wbc 11.6, elevated LFTs and amylase/lipase, indicating pancreatitis. US showed multiple gallstones but no cholecystitis, and CT also showed pancreatic inflammation with possible secondary inflammatory changes around gallbladder. She was transferred to [facility] and is awaiting MRCP to r/o cbd stone. Surgery was asked to assess. She has been seen by GI and cardiology as well. She is seen and examined in bed, with daughter present. She notes her upper abdominal pain is coming back; last morphine was around 11:30 am. She is getting fluids and IV antibiotics. WBC today is down slightly to 10.9, lipase and LFTs trending down. She reports good functional status, walking up to her second floor apartment daily, sometimes with groceries. She denies previous similar pain or recent illness. She is anxious about the upcoming MRI, and possible need for interventional procedures. - History Source History Provided By: Patient Limitations to Obtaining History: No Limitations - Past Medical History Cardio/Vascular: Yes: CAD, HTN, Hyperlipdemia Reproductive: Yes: Postmenopausal Endocrine: Yes: Hypothyroidism - Past Surgical History Past Surgical History: Yes: CABG (x2), Colonoscopy, Tonsillectomy, Valve Replacement (AVR (porcine)) - Alcohol/Substance Use Hx Alcohol Use: Yes (1 glass wine per night) History of Substance Use: reports: None - Smoking History Smoking history: Never smoked Have you smoked in the past 12 months: No - Social History Usual Living Arrangement: Alone () ADL: Independent 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 History of Recent Travel: No Home Medications - Allergies Allergies/Adverse Reactions: Allergies Allergy/AdvReac Type Severity Reaction Status Date / Time azithromycin Allergy Verified 07/24/18 12:15 clindamycin Allergy Verified 07/24/18 12:15 diltiazem Allergy Verified 07/24/18 12:15 ezetimibe [From Zetia] Allergy Verified 09/09/18 08:33 hydroxychloroquine Allergy Verified 07/24/18 12:15 lidocaine Allergy Verified 07/24/18 12:15 naproxen Allergy Verified 07/24/18 12:15 rosuvastatin calcium Allergy Verified 07/24/18 12:15 [From Crestor] - Home Medications Home Medications: Ambulatory Orders Aspirin [Aspirin EC] 81 mg PO DAILY 01/13/14 Levothyroxine [Synthroid -] 50 mcg PO DAILY 01/13/14 Atorvastatin Ca [Lipitor] 20 mg PO DAILY 09/09/18 Cholecalciferol (Vitamin D3) [D-2000] 2,000 unit PO DAILY 09/09/18 Diltiazem HCl [Cartia Xt] 180 mg PO BID 09/09/18 Ubidecarenone [Co Q-10] 300 mg PO DAILY 09/09/18 Family Disease History - Family Disease History Family Disease History: Other: Father (: 60's: ALS), Mother (: 104), Brother (1 : 27: heart problem), Sister (2, (Twin) suspeted metastatic melanoma of eye. 1 of cancer age 27 ) Review of Systems - Review of Systems Constitutional: denies: Chills, Fever Eyes: reports: Other (reading glasses). denies: Recent Change in Vision HENT: denies: Difficult Swallowing, Throat Pain Neck: denies: Swollen Glands, Tenderness Cardiovascular: denies: Chest Pain, Palpitations Respiratory: denies: Cough, SOB Gastrointestinal: reports: Abdominal Pain (with hpi), Constipation (with hpi), Nausea. denies: Vomiting Genitourinary: denies: Burning, Dysuria Musculoskeletal: denies: Back Pain, Joint Pain, Muscle Pain Integumentary: denies: Change in Color, Rash Neurological: denies: Dizziness, Headache Psychiatric: denies: Anxiety, Depression Physical Exam Vital Signs: Vital Signs Temperature 97.8 F 12/12/18 14:00 Pulse Rate 102 H 12/12/18 14:00 Respiratory Rate 20 12/12/18 14:00 Blood Pressure 197/92 H 12/12/18 14:00 O2 Sat by Pulse Oximetry (%) 98 12/12/18 03:36 white-coat syndrome noted in cardio notes pt on home med for BP Constitutional: Yes: No Distress, Calm, Thin Eyes: Yes: Conjunctiva Clear, EOM Intact. No: Sclera Icterus HENT: Yes: Atraumatic, Normocephalic Neck: Yes: Supple, Trachea Midline Cardiovascular: Yes: Regular Rate and Rhythm, Murmur Respiratory: Yes: Regular, CTA Bilaterally Gastrointestinal: Yes: Soft, Hypoactive Bowel Sounds, Tenderness (RUQ, no ty/ guard), Tenderness, Epigastrium. No: Distention ...Rectal Exam: Yes: Deferred Renal/: No: CVA Tenderness - Left, CVA Tenderness - Right Musculoskeletal: No: Joint Stiffness, Joint Swelling Extremities: No: Cool, Cyanosis Edema: No Peripheral Pulses WNL: Yes Integumentary: No: Jaundice, Rash Neurological: Yes: Alert, Oriented Psychiatric: Yes: Alert, Oriented Labs: CBC, BMP 12/12/18 08:03 12/12/18 08:03 CMP Sodium 139 mmol/L (136-145) 12/12/18 08:03 Potassium 3.5 mmol/L (3.5-5.1) 12/12/18 08:03 Chloride 104 mmol/L (98-107) 12/12/18 08:03 Carbon Dioxide 26 mmol/L (21-32) 12/12/18 08:03 Anion Gap 8 MMOL/L (8-16) 12/12/18 08:03 BUN 13.0 mg/dL (7-18) 12/12/18 08:03 Creatinine 0.7 mg/dL (0.55-1.3) 12/12/18 08:03 Est GFR (CKD-EPI)AfAm 90.93 12/12/18 08:03 Est GFR (CKD-EPI)NonAf 78.45 12/12/18 08:03 Random Glucose 118 mg/dL (74-106) H 12/12/18 08:03 Lactic Acid 1.0 mmol/L (0.4-2.0) 12/11/18 23:00 Calcium 8.9 mg/dL (8.5-10.1) 12/12/18 08:03 Total Bilirubin 0.6 mg/dL (0.2-1) 12/12/18 08:03 Direct Bilirubin 0.2 mg/dL (0.0-0.2) 12/12/18 08:03 AST 120 U/L (15-37) H 12/12/18 08:03 ALT 103 U/L (13-61) H 12/12/18 08:03 Alkaline Phosphatase 168 U/L (45-117) H 12/12/18 08:03 Creatine Kinase 32 U/L (26-192) 12/11/18 23:00 Troponin I 0.03 ng/ml (0.00-0.05) 12/11/18 23:00 Total Protein 7.3 g/dl (6.4-8.2) 12/12/18 08:03 Albumin 4.0 g/dl (3.4-5.0) 12/12/18 08:03 Total Amylase 790 U/L (25-115) H 12/11/18 23:00 Lipase 2491 U/L (73-393) H 12/12/18 08:03 lipase down from 4800 LFTs trending down but still elevated wbc down from 11.6 Imaging - Results Cat Scan: Report Reviewed, Image Reviewed (multiple gallstones, + pancreatic edema/haziness with some mesenteric involvement, possible secondary inflammation around gallbladder) Ultrasound: Report Reviewed, Image Reviewed (images reviewed - multiple gallstones, normal cbd, no evidence cholecystitis) MRI: Pending Problem List - Problems (1) Gallstone pancreatitis Code(s): K85.10 - BILIARY ACUTE PANCREATITIS WITHOUT NECROSIS OR INFECTION (2) Calculus of gallbladder and bile duct with obstruction without cholecystitis Code(s): K80.71 - CALCULUS OF GB AND BILE DUCT W/O CHOLECYST W OBSTRUCTION (3) Epigastric pain Code(s): R10.13 - EPIGASTRIC PAIN (4) Hypertension Code(s): I10 - ESSENTIAL (PRIMARY) HYPERTENSION Qualifiers: Hypertension type: essential hypertension Qualified Code(s): I10 - Essential (primary) hypertension (5) Hypothyroidism Code(s): E03.9 - HYPOTHYROIDISM, UNSPECIFIED Qualifiers: Hypothyroidism type: unspecified Qualified Code(s): E03.9 - Hypothyroidism , unspecified (6) Hyperlipidemia Code(s): E78.5 - HYPERLIPIDEMIA, UNSPECIFIED Qualifiers: Hyperlipidemia type: unspecified Qualified Code(s): E78.5 - Hyperlipidemia , unspecified Assessment/Plan admitted to medicine still with pain and tenderness continue NPO/IVF - generous IV fluids, ok for essential meds w/sips only pain meds prn, add IV tylenol for first-line MRCP pending to r/o cbd stone, need for ERCP holding asa GI/DVT prophylaxis GI and cardiology consults noted discussed with Drs. Taylor and Yas will follow with you Thank you for the opportunity to participate in the care of this patient.
[2018-12-12] MEDS ORDERED: PT OWN MED DRAWER 7, Y5N ONE (22:51)
[2018-12-13] MEDS: D5-1/2NS+20 MEQ KCL - 20 MEQ/1,000 ML INFUS.BAG IV SCH (01:14)
[2018-12-13] MEDS: MORPHINE SULFATE 2 MG/ML VIAL IVPUSH PRN (02:50)
[2018-12-13] MEDS: LEVOTHYROXINE NA 50 MCG TABLET (FP) PO SCH (06:17)
[2018-12-13 07:41] LABS: BASO % 0.1 % (0-2.0); HEMATOCRIT 35.7 % (32.4-45.2); LYMPH % 6.2 % (8-40); MCH 31.3 pg (25.7-33.7); MCHC 33.6 g/dl (32.0-36.0); MEAN CELL VOLUME 93.2 fl (80-96); MEAN PLT VOLUME 9.2 fl (7.5-11.1); NEUT % 86.7 % (42.8-82.8); RBC 3.83 M/mm3 (3.60-5.2); RDW 14.4 % (11.6-15.6); WHITE BLOOD COUNT 15.3 K/mm3 (4.0-10.0)
[2018-12-13 08:04] LABS: MAGNESIUM 1.6 mg/dL (1.8-2.4); PHOSPHOROUS 1.4 mg/dL (2.5-4.9)
[2018-12-13 08:09] LABS: ALBUMIN 3.1 g/dl (3.4-5.0); BILIRUBIN,TOTAL 0.6 mg/dL (0.2-1); BLOOD UREA NITROGEN 9.7 mg/dL (7-18); CREATININE 0.6 mg/dL (0.55-1.3); POTASSIUM 3.7 mmol/L (3.5-5.1)
[2018-12-13 08:51] LABS: PLATELET COUNT 125 K/MM3 (134-434)
[2018-12-13] MEDS ORDERED: MAGNESIUM SULF 50% (8.12 MEQ/2 ML-1 GM VIAL) IVPB ONE (09:26)
[2018-12-13] MEDS ORDERED: D5-1/2NS+20 MEQ KCL - 20 MEQ/1,000 ML INFUS.BAG IV SCH (09:26)
--- NOTE | 2018-12-13 09:38 | PN ---
Physical Exam: SUBJECTIVE: Patient seen and examined, abdominal pain improved, no further nausea, vomiting, feels well. OBJECTIVE: Vital Signs Period Temp Pulse Resp BP Sys/Machado Pulse Ox Last 24 Hr 97.8 F-99.4 F 77-102 18-20 147-197/55-92 98 Intake & Output 12/10/18 12/11/18 12/12/18 12/13/18 23:59 23:59 23:59 23:59 Intake Total 2600 1375 Balance 2600 1375 Weight 105 lb 13.15 oz GENERAL: lying in bed in no acute distress Neck: soft, supple, no JVD Chest: CTAB, no rales or wheezing Abdomen: Soft, NT throughout today, no voluntary or involuntary guarding or rigidity, pos bowel sounds Extremities: no edema Psych: pleasant co-operative Laboratory Results - last 24 hr 12/12/18 12/12/18 12/12/18 02:32 08:03 17:39 WBC RBC Hgb Hct MCV MCH MCHC RDW Plt Count MPV Absolute Neuts (auto) Neutrophils % Lymphocytes % Monocytes % Eosinophils % Basophils % Nucleated RBC % Sodium Potassium Chloride Carbon Dioxide Anion Gap BUN Creatinine Est GFR (CKD-EPI)AfAm Est GFR (CKD-EPI)NonAf POC Glucometer 175 Random Glucose Calcium Phosphorus Magnesium Total Bilirubin AST ALT Alkaline Phosphatase C-Reactive Protein Total Protein Albumin Lipase 2491 H Urine RBC 0-2 Urine WBC 0-2 12/13/18 12/13/18 12/13/18 01:20 05:44 05:44 WBC 15.3 H RBC 3.83 Hgb 12.0 Hct 35.7 MCV 93.2 MCH 31.3 MCHC 33.6 RDW 14.4 Plt Count 125 L MPV 9.2 Absolute Neuts (auto) 13.3 H Neutrophils % 86.7 H Lymphocytes % 6.2 L Monocytes % 7.0 Eosinophils % 0.0 Basophils % 0.1 Nucleated RBC % 0 Sodium Potassium Chloride Carbon Dioxide Anion Gap BUN Creatinine Est GFR (CKD-EPI)AfAm Est GFR (CKD-EPI)NonAf POC Glucometer 155 Random Glucose Calcium Phosphorus 1.4 L Magnesium 1.6 L Total Bilirubin AST ALT Alkaline Phosphatase C-Reactive Protein Total Protein Albumin Lipase 544 H Urine RBC Urine WBC 12/13/18 05:44 WBC RBC Hgb Hct MCV MCH MCHC RDW Plt Count MPV Absolute Neuts (auto) Neutrophils % Lymphocytes % Monocytes % Eosinophils % Basophils % Nucleated RBC % Sodium 134 L Potassium 3.7 Chloride 101 Carbon Dioxide 26 Anion Gap 6 L BUN 9.7 Creatinine 0.6 Est GFR (CKD-EPI)AfAm 95.66 Est GFR (CKD-EPI)NonAf 82.53 POC Glucometer Random Glucose 135 H Calcium 8.0 L Phosphorus Magnesium Total Bilirubin 0.6 AST 54 H ALT 60 Alkaline Phosphatase 126 H C-Reactive Protein 14.3 H Total Protein 6.0 L Albumin 3.1 L Lipase Urine RBC Urine WBC Active Medications Generic Name Dose Route Start Last Admin Trade Name Freq PRN Reason Stop Dose Admin Acetaminophen 1,000 mg 12/12/18 14:47 12/12/18 15:22 Ofirmev Injection - IVPB 1,000 mg Q6H PRN Administration PAIN LEVEL 6-10 Ceftriaxone Sodium 1 gm/ 50 mls @ 100 mls/hr 12/12/18 11:00 12/12/18 11:40 Dextrose IVPB 100 mls/hr DAILY PAUL Administration Protocol Metronidazole 500 mg in 100 mls @ 100 mls/hr 12/12/18 11:00 12/13/18 01:13 Flagyl 500mg Premixed Ivpb - IVPB 100 mls/hr Q8H-IV PAUL Administration Potassium Chloride/Dextrose/Sod Cl 20 meq in 1,000 mls @ 100 mls/hr 12/13/18 09:26 D5-1/2ns+20 Meq Kcl - IV ASDIR PAUL Levothyroxine Sodium 50 mcg 12/12/18 10:30 12/13/18 06:17 Synthroid - PO 50 mcg DAILY@0700 PAUL Administration Magnesium Sulfate 2 gm 12/13/18 09:26 Magnesium Sulfate IVPB 12/13/18 09:27 ONCE ONE Morphine Sulfate 1 mg 12/12/18 10:26 12/13/18 02:50 Morphine Sulfate IVPUSH 1 mg Q4H PRN Administration PAIN LEVEL 6-10 Patient's Own 1 each 12/12/18 11:30 12/12/18 22:25 Medication :Cartia- PO 1 each Xt 180 Mg Caps BID PAUL Administration Ondansetron HCl 4 mg 12/12/18 10:51 Zofran Injection IVPUSH Q6H PRN NAUSEA Pantoprazole Sodium 40 mg 12/13/18 10:00 Protonix Iv IVPUSH DAILY PAUL Potassium Phos/Sodium Phos 2 packet 12/13/18 10:00 Phos-Nak Packet - PO 12/14/18 22:01 BID [facility] Home Medications Medication Instructions Recorded Aspirin [Aspirin EC] 81 mg PO DAILY 01/13/14 Levothyroxine [Synthroid -] 50 mcg PO DAILY 01/13/14 Atorvastatin Ca [Lipitor] 20 mg PO DAILY 09/09/18 Cholecalciferol (Vitamin D3) 2,000 unit PO DAILY 09/09/18 [D-2000] Diltiazem HCl [Cartia Xt] 180 mg PO BID 09/09/18 Ubidecarenone [Co Q-10] 300 mg PO DAILY 09/09/18 Microbiology 12/12/18 08:00 Blood - Peripheral Venous Blood Culture - Preliminary NO GROWTH OBTAINED AFTER 24 HOURS, INCUBATION TO CONTINUE FOR 4 DAYS. 12/12/18 08:05 Blood - Peripheral Venous Blood Culture - Preliminary NO GROWTH OBTAINED AFTER 24 HOURS, INCUBATION TO CONTINUE FOR 4 DAYS. ASSESSMENT/PLAN: 88 yof with PMHx of CAD s/p CABG/BioAVR, HTN, HLD, Thoracic aortic aneurysm with acute gall stone pancreatitis +/- acute cholecystitis -Acute gallstone pancreatitis+/- cholecystitis -Abnormal LFTs, from above -Uncontrolled HTN, suspect from pain, unable to get meds and while coat HTN -Thrombocytopenia -Hypomagnesemia/Hypophosphatemia -HLD -CAD s/p CABG -Thoracic aortic aneurysm Plan: Clinically markedly improved MRCP prelim report noted, with cholelithiasis but no cholecystitis or choledocholithiasis. LFTs improved, WBC up, ?etiology, Ceftriaxone/flagyl day 2, blood cx neg so far. NPO, IVF, supportive tx /tylenol/morphine/zofran. Replete Mg/phos GI/surgery input noted. Possible lap CCY tomorrow. Cardiology input appreciated. Continue Cartia XT (reports allergy to multiple other anti-HTN), BP better. Continue levothyroxine, Hold statin/ASA. GIPPX with Protonix DVTPPX hold lovenox, trend platelets for now. Dispo pending clinical improvement. Plan discussed with patient and daughter at bedside in detail, all questions answered. Visit type - Emergency Visit Emergency Visit: Yes ED Registration Date: 12/12/18 Care time: The patient presented to the Emergency Department on the above date and was hospitalized for further evaluation of their emergent condition. - New Patient This patient is new to me today: No - Critical Care Critical Care patient: No - Discharge Referral Referred to [facility] No
[2018-12-13] MEDS ORDERED: DEXTROSE 5%-WATER - 50 ML IVPB ONE (09:44)
[2018-12-13] MEDS ORDERED: cefTRIAXone SODIUM 1 GM VIAL ONE (09:44)
[2018-12-13] MEDS ORDERED: ENOXAPARIN NA (PORCINE) 40 MG/0.4 ML DISP.SYRIN SQ SCH (10:00)
[2018-12-13] MEDS: CEFTRIAXONE 1 GM in DEXTROSE 5%-WATER - 50 ML IVPB SCH (10:35)
[2018-12-13] MEDS: PANTOPRAZOLE SODIUM 40 MG VIAL IVPUSH SCH (10:35)
[2018-12-13] MEDS: CARTIA XT 180 MG PO SCH ×2 (10:42→21:11)
[2018-12-13] MEDS: NAPH,MB-DB/K PH,MBDB POWDER PACKET PO SCH ×2 (10:48→21:11)
[2018-12-13] MEDS ORDERED: SODIUM CHLORIDE 0.45%/POT 20 MEQ/1,000 ML INFUS.BAG IV SCH (12:00)
--- NOTE | 2018-12-13 12:07 | PN.GI ---
GI Progress Note Subjective: No acute events. Still with some pain, better than yesterday CT scan officially read as changes c/w acute pancreatitis MRCP performed. - Objective Vital Signs: Vital Signs Temperature 99.4 F 12/13/18 05:00 Pulse Rate 82 12/13/18 05:00 Respiratory Rate 20 12/13/18 05:00 Blood Pressure 147/55 L 12/13/18 05:00 O2 Sat by Pulse Oximetry (%) 98 12/12/18 21:00 Constitutional: Calm Eyes: No: Sclera Icterus Cardiovascular: Yes: Regular Rate and Rhythm Respiratory: Yes: CTA Bilaterally Gastrointestinal Inspection: No: Distention ...Auscultate: Yes: Normoactive Bowel Sounds ...Palpate: Yes: Tenderness (TTP right / mid abdomen) ...Percussion: No: Tympanitic Edema: No (No LE edema) Neurological: Yes: Alert Labs: CBC, BMP 12/13/18 05:44 12/13/18 05:44 INR, PTT INR 0.93 (0.83-1.09) 12/12/18 08:03 Problem List - Problems (1) Abdominal pain Assessment/Plan: Suspect gallstone pancreatitis with some clinical improvement today Evaluated by surgery MRCP pending and potential need for ERCP to be determined by results Advance to clears IV Hydration: d5 NS ordered Monitor LFTs Code(s): R10.9 - UNSPECIFIED ABDOMINAL PAIN Qualifiers: Abdominal location: generalized Qualified Code(s): R10.84 - Generalized abdominal pain
[2018-12-13] MEDS ORDERED: DEXTROSE 5%-NORMAL SALINE 1,000 ML IV SCH (12:15)
[2018-12-13] MEDS: SODIUM CHLORIDE 0.9%/KCL 20 MEQ/1,000 ML INFUS.BAG IV SCH (14:29)
--- NOTE | 2018-12-13 15:19 | PN ---
Progress Note, Physician History of Present Illness: Pt with gallstone pancreatitis. MRCP done yesterday shows no apparent cbd stone , + changes consistent with pancreatitis. Lipase down today, but wbc up to 15. She is seen and examined in bed, with family present. She reports no pain, no N/ V. Feels gurgling in her belly. Is about to have clears for lunch when first seen. Revisited just before dinner. Pt had some jello and water/juice earlier only for lunch. No pain. Has not been up ambulating. - Current Medication List Current Medications: Active Medications Acetaminophen (Ofirmev Injection -) 1,000 mg IVPB Q6H PRN PRN Reason: PAIN LEVEL 6-10 Last Admin: 12/12/18 15:22 Dose: 1,000 mg Ceftriaxone Sodium 1 gm/ (Dextrose) 50 mls @ 100 mls/hr IVPB DAILY [facility]; Protocol Last Admin: 12/13/18 10:35 Dose: 100 mls/hr Metronidazole (Flagyl 500mg Premixed Ivpb -) 500 mg in 100 mls @ 100 mls/hr IVPB Q8H-IV [facility] Last Admin: 12/13/18 10:36 Dose: 100 mls/hr Potassium Chloride/Sodium Chloride (Ns+20 Meq Kcl -) 20 meq in 1,000 mls @ 100 mls/hr IV ASDIR [facility] Last Admin: 12/13/18 14:29 Dose: 100 mls/hr Levothyroxine Sodium (Synthroid -) 50 mcg PO DAILY@0700 [facility] Last Admin: 12/13/18 06:17 Dose: 50 mcg Morphine Sulfate (Morphine Sulfate) 1 mg IVPUSH Q4H PRN PRN Reason: PAIN LEVEL 6-10 Last Admin: 12/13/18 02:50 Dose: 1 mg Patient's Own Medication :Cartia- Xt 180 Mg Caps 1 each PO BID [facility] Last Admin: 12/13/18 10:42 Dose: 1 each Ondansetron HCl (Zofran Injection) 4 mg IVPUSH Q6H PRN PRN Reason: NAUSEA Pantoprazole Sodium (Protonix Iv) 40 mg IVPUSH DAILY [facility] Last Admin: 12/13/18 10:35 Dose: 40 mg Potassium Phos/Sodium Phos (Phos-Nak Packet -) 2 packet PO BID [facility] Stop: 12/14/18 22:01 Last Admin: 12/13/18 10:48 Dose: 2 packet - Objective Vital Signs: Vital Signs Temperature 98.6 F 12/13/18 14:12 Pulse Rate 78 12/13/18 14:12 Respiratory Rate 20 12/13/18 14:12 Blood Pressure 147/64 12/13/18 14:12 O2 Sat by Pulse Oximetry (%) 98 12/13/18 09:00 Constitutional: Yes: No Distress, Calm, Thin Eyes: Yes: Conjunctiva Clear, EOM Intact. No: Sclera Icterus HENT: Yes: Atraumatic, Normocephalic Gastrointestinal: Yes: Soft, Distention (mild, with some tympany), Hernia ( small bit of fat palpable at umbilicus). No: Tenderness, Tenderness, Epigastrium (very minimal) Extremities: No: Cool, Cyanosis Integumentary: No: Jaundice, Rash Neurological: Yes: Alert, Oriented Labs: CBC, BMP 12/13/18 05:44 12/13/18 05:44 CMP Sodium 134 mmol/L (136-145) L 12/13/18 05:44 Potassium 3.7 mmol/L (3.5-5.1) 12/13/18 05:44 Chloride 101 mmol/L (98-107) 12/13/18 05:44 Carbon Dioxide 26 mmol/L (21-32) 12/13/18 05:44 Anion Gap 6 MMOL/L (8-16) L 12/13/18 05:44 BUN 9.7 mg/dL (7-18) 12/13/18 05:44 Creatinine 0.6 mg/dL (0.55-1.3) 12/13/18 05:44 Est GFR (CKD-EPI)AfAm 95.66 12/13/18 05:44 Est GFR (CKD-EPI)NonAf 82.53 12/13/18 05:44 POC Glucometer 155 UNITS (80-120) 12/13/18 01:20 Random Glucose 135 mg/dL (74-106) H 12/13/18 05:44 Lactic Acid 1.0 mmol/L (0.4-2.0) 12/11/18 23:00 Calcium 8.0 mg/dL (8.5-10.1) L 12/13/18 05:44 Phosphorus 1.4 mg/dL (2.5-4.9) L 12/13/18 05:44 Magnesium 1.6 mg/dL (1.8-2.4) L 12/13/18 05:44 Total Bilirubin 0.6 mg/dL (0.2-1) 12/13/18 05:44 Direct Bilirubin 0.2 mg/dL (0.0-0.2) 12/12/18 08:03 AST 54 U/L (15-37) H 12/13/18 05:44 ALT 60 U/L (13-61) 12/13/18 05:44 Alkaline Phosphatase 126 U/L (45-117) H 12/13/18 05:44 Creatine Kinase 32 U/L (26-192) 12/11/18 23:00 Troponin I 0.03 ng/ml (0.00-0.05) 12/11/18 23:00 C-Reactive Protein 14.3 MG/DL (0.00-0.3) H 12/13/18 05:44 Total Protein 6.0 g/dl (6.4-8.2) L 12/13/18 05:44 Albumin 3.1 g/dl (3.4-5.0) L 12/13/18 05:44 Total Amylase 790 U/L (25-115) H 12/11/18 23:00 Lipase 544 U/L (73-393) H 12/13/18 05:44 - ....Imaging MRI: Report Reviewed, Image Reviewed (images reviewed, [facility] report seen; inflamed pancreas, no apparent cbd stones, + gallstones) Problem List - Problems (1) Gallstone pancreatitis Code(s): K85.10 - BILIARY ACUTE PANCREATITIS WITHOUT NECROSIS OR INFECTION (2) Calculus of gallbladder and bile duct with obstruction without cholecystitis Code(s): K80.71 - CALCULUS OF GB AND BILE DUCT W/O CHOLECYST W OBSTRUCTION (3) Epigastric pain Code(s): R10.13 - EPIGASTRIC PAIN (4) Hypertension Code(s): I10 - ESSENTIAL (PRIMARY) HYPERTENSION Qualifiers: Hypertension type: essential hypertension Qualified Code(s): I10 - Essential (primary) hypertension (5) Hypothyroidism Code(s): E03.9 - HYPOTHYROIDISM, UNSPECIFIED Qualifiers: Hypothyroidism type: unspecified Qualified Code(s): E03.9 - Hypothyroidism , unspecified (6) Hyperlipidemia Code(s): E78.5 - HYPERLIPIDEMIA, UNSPECIFIED Qualifiers: Hyperlipidemia type: unspecified Qualified Code(s): E78.5 - Hyperlipidemia , unspecified Assessment/Plan gallstone pancreatitis no more pain, minimal if any tenderness clears ok for rest of today, NPO after MN except meds pain meds prn, IV tylenol for first-line MRCP negative for cbd stones holding asa GI/DVT prophylaxis trend labs in am encourage OOB/ambulation as able PT postop - pt has 26 stairs to climb to her apartment (no elevator) GI and cardiology consults noted discussed with Dr. Lau Discussed with patient risks, benefits and alternatives of laparoscopic possible open cholecystectomy, including but not limited to bleeding, infection , injury to adjacent structures, bile leak or ductal injury, intraabdominal abscess, incisional hernia, need for further procedures; alternatives include delayed or no surgery - risks of this include recurrence of pancreatitis, cholecystitis, cholangitis, sepsis. Patient desires to proceed with operation - will take to OR tomorrow for above. Informed consent signed for same.
--- NOTE | 2018-12-14 00:28 | EKG ---
Test Reason : Blood Pressure : / mmHG Vent. Rate : 091 BPM Atrial Rate : 091 BPM P-R Int : 178 ms QRS Dur : 092 ms QT Int : 400 ms P-R-T Axes : 080 055 081 degrees QTc Int : 492 ms SINUS RHYTHM WITH PREMATURE SUPRAVENTRICULAR COMPLEXES AND WITH OCCASIONAL PREMATURE VENTRICULAR COMPLEXES BIATRIAL ENLARGEMENT CANNOT RULE OUT INFERIOR INFARCT (CITED ON OR BEFORE 24-JUL-2018) ABNORMAL ECG WHEN COMPARED WITH ECG OF 09-SEP-2018 08:38, PREMATURE VENTRICULAR COMPLEXES ARE NOW PRESENT PREMATURE SUPRAVENTRICULAR COMPLEXES ARE NOW PRESENT NONSPECIFIC T WAVE ABNORMALITY, IMPROVED IN LATERAL LEADS Confirmed by MD Kenny, Blake ([id number]) on 12/14/2018 12:28:17 AM Referred By: Kunal KING Confirmed By:Blake Cox MD
[2018-12-14] MEDS: LEVOTHYROXINE NA 50 MCG TABLET (FP) PO SCH (06:08)
[2018-12-14 07:56] LABS: EOS % 0.1 % (0-4.5); HEMATOCRIT 37.4 % (32.4-45.2); HEMOGLOBIN 12.6 GM/dL (10.7-15.3); LYMPH % 8.7 % (8-40); MCH 31.4 pg (25.7-33.7); MCHC 33.6 g/dl (32.0-36.0); MEAN CELL VOLUME 93.3 fl (80-96); MEAN PLT VOLUME 9.1 fl (7.5-11.1); MONO % 7.1 % (3.8-10.2); NEUT % 84.1 % (42.8-82.8); PLATELET COUNT 127 K/MM3 (134-434); RDW 14.7 % (11.6-15.6); WHITE BLOOD COUNT 11.7 K/mm3 (4.0-10.0)
[2018-12-14 08:21] LABS: BILIRUBIN,DIRECT 0.2 mg/dL (0.0-0.2); BILIRUBIN,TOTAL 0.6 mg/dL (0.2-1); BLOOD UREA NITROGEN 6.8 mg/dL (7-18); CALCIUM 8.1 mg/dL (8.5-10.1); CREATININE 0.6 mg/dL (0.55-1.3); MAGNESIUM 2.3 mg/dL (1.8-2.4); PHOSPHOROUS 1.7 mg/dL (2.5-4.9); POTASSIUM 3.8 mmol/L (3.5-5.1); TOT PROT 5.9 g/dl (6.4-8.2)
[2018-12-14] MEDS ORDERED: DEXTROSE 5%-WATER - 50 ML IVPB ONE (09:17)
[2018-12-14] MEDS ORDERED: cefTRIAXone SODIUM 1 GM VIAL ONE (09:17)
[2018-12-14] MEDS: CEFTRIAXONE 1 GM in DEXTROSE 5%-WATER - 50 ML IVPB SCH (09:53)
[2018-12-14] MEDS: CARTIA XT 180 MG PO SCH (09:54)
[2018-12-14] MEDS: PANTOPRAZOLE SODIUM 40 MG VIAL IVPUSH SCH (09:54)
[2018-12-14] MEDS: NAPH,MB-DB/K PH,MBDB POWDER PACKET PO SCH (09:54)
--- NOTE | 2018-12-14 11:46 | PN ---
Progress Note, Physician Chief Complaint: Daughters at bedside Denies CP, SOB, palps History of Present Illness: BP much better controlled. - Current Medication List Current Medications: Active Medications Acetaminophen (Ofirmev Injection -) 1,000 mg IVPB Q6H PRN PRN Reason: PAIN LEVEL 6-10 Last Admin: 12/12/18 15:22 Dose: 1,000 mg Ceftriaxone Sodium 1 gm/ (Dextrose) 50 mls @ 100 mls/hr IVPB DAILY [facility]; Protocol Last Admin: 12/14/18 09:53 Dose: 100 mls/hr Metronidazole (Flagyl 500mg Premixed Ivpb -) 500 mg in 100 mls @ 100 mls/hr IVPB Q8H-IV [facility] Last Admin: 12/14/18 10:46 Dose: 100 mls/hr Potassium Chloride/Sodium Chloride (Ns+20 Meq Kcl -) 20 meq in 1,000 mls @ 100 mls/hr IV ASDIR [facility] Last Admin: 12/13/18 14:29 Dose: 100 mls/hr Levothyroxine Sodium (Synthroid -) 50 mcg PO DAILY@0700 [facility] Last Admin: 12/14/18 06:08 Dose: 50 mcg Morphine Sulfate (Morphine Sulfate) 1 mg IVPUSH Q4H PRN PRN Reason: PAIN LEVEL 6-10 Last Admin: 12/13/18 02:50 Dose: 1 mg Patient's Own Medication :Cartia- Xt 180 Mg Caps 1 each PO BID [facility] Last Admin: 12/14/18 09:54 Dose: 1 each Ondansetron HCl (Zofran Injection) 4 mg IVPUSH Q6H PRN PRN Reason: NAUSEA Pantoprazole Sodium (Protonix Iv) 40 mg IVPUSH DAILY [facility] Last Admin: 12/14/18 09:54 Dose: 40 mg Potassium Phos/Sodium Phos (Phos-Nak Packet -) 2 packet PO BID [facility] Stop: 12/14/18 22:01 Last Admin: 12/14/18 09:54 Dose: Not Given - Objective Vital Signs: Vital Signs Temperature 97.9 F 12/14/18 09:00 Pulse Rate 83 12/14/18 09:00 Respiratory Rate 20 12/14/18 09:00 Blood Pressure 124/66 12/14/18 09:00 O2 Sat by Pulse Oximetry (%) 99 12/13/18 21:00 Constitutional: Yes: No Distress Cardiovascular: Yes: Regular Rate and Rhythm Respiratory: Yes: CTA Bilaterally Gastrointestinal: Yes: Soft (NT, no rebound/guarding) Edema: No Neurological: Yes: Alert, Oriented Labs: CBC, BMP 12/14/18 07:03 12/14/18 07:03 INR, PTT INR 0.93 (0.83-1.09) 12/12/18 08:03 Laboratory Tests 12/12/18 12/14/18 12/14/18 08:03 07:03 07:03 WBC 11.7 H Hgb 12.6 Plt Count 127 L PT with INR 11.00 INR 0.93 Sodium 139 Potassium 3.8 Creatinine 0.6 Phosphorus 1.7 L Magnesium 2.3 Total Bilirubin 0.6 Direct Bilirubin 0.2 AST 34 ALT 41 Alkaline Phosphatase 120 H Assessment/Plan Assessment/Plan ECG: NSR, LVH, biatrial abnormality. no signif ST-T, ? old IWMI (no signif change vs prior 09/01) CXR: clear lungs/pleura. lungs slightly hyperaerated Possible acute pancreatitis, preop CV eval: -Revised CV Risk Index = 2, good functional capacity -no s/sx of ischemic heart dz or chf -she is medically optimized as far as cardiac status goes -at acceptable risk for surgery incl general anesthesia -known white coat htn--overall trend WNL last 24 hours h/o CABG/bioAVR: -on aspirin, atorva 20 at home--held here (preop, NPO, ast/lt up) -no angina, no acute ischemia on ekg, trop neg x 1. no further w/u needed -routine outpt f/u (dr goins, [place]) HTN: -on Cartia XT 180 bid at home. cannot tolerate generic diltiazem (diffuse muscle aches), has h/o intolerances/reactions to mult meds (see list in chart). -also with known white coat HTN -bp initially elevated--? related to acute abd pain, likely component of anxiet/ white coat effect based on her history, now normalized -continue home Cartia XT dose, observe bp trend "thoracic aorta aneurysm" (+/-): -borderline dilation of descending thoracic aorta 3.7 cm on 07/2017 CT report-- unchanged on present study (measured as 3.5 cm) -routine bp, lipids mgmt--to be followed as outpt
[2018-12-14] MEDS ORDERED: ONDANSETRON 4 MG/2 ML VIAL IVPUSH PRN ×2 (13:58→17:00)
[2018-12-14] MEDS ORDERED: LACTATED RINGERS SOLUTION 1,000 ML IV SCH ×2 (14:00→17:00)
[2018-12-14] MEDS ORDERED: ROCURONIUM BROMIDE 50 MG/5 ML SYRINGE ONE ×2 (14:19→15:39)
[2018-12-14] MEDS ORDERED: LIDOCAINE HCL/PF 2% SDV 5ML VIAL ONE (14:19)
[2018-12-14] MEDS ORDERED: PROPOFOL 20 ML ONE (14:19)
[2018-12-14] MEDS ORDERED: DEXAMETHASONE SOD PHOSPHATE 4 MG/1 ML VIAL ONE (14:19)
--- NOTE | 2018-12-14 14:27 | PN ---
Physical Exam: SUBJECTIVE: Patient seen and examined, denies any nausea, vomiting, fevers, chills, abdominal pain, awaiting surgery. OBJECTIVE: Vital Signs Period Temp Pulse Resp BP Sys/Machado Pulse Ox Last 24 Hr 97.9 F-99.2 F 77-96 18-20 124-144/52-69 94-99 Intake & Output 12/11/18 12/12/18 12/13/18 12/14/18 23:59 23:59 23:59 23:59 Intake Total 2600 2075 600 Balance 2600 2075 600 Weight 105 lb 13.15 oz GENERAL: sitting in bed in no acute distress Neck: soft, supple, no JVD CVS:S1s2 regular Chest: CTAB, no rales or wheezing Abdomen:soft, NT throughout, ND, pos bowel sounds Extremities: no edema Psych: pleasant, co-operative Laboratory Results - last 24 hr 12/14/18 12/14/18 07:03 07:03 WBC 11.7 H RBC 4.00 Hgb 12.6 Hct 37.4 MCV 93.3 MCH 31.4 MCHC 33.6 RDW 14.7 Plt Count 127 L MPV 9.1 Absolute Neuts (auto) 9.8 H Neutrophils % 84.1 H Lymphocytes % 8.7 D Monocytes % 7.1 Eosinophils % 0.1 D Basophils % 0.0 Nucleated RBC % 0 Sodium 139 Potassium 3.8 Chloride 108 H Carbon Dioxide 24 Anion Gap 7 L BUN 6.8 L Creatinine 0.6 Est GFR (CKD-EPI)AfAm 95.66 Est GFR (CKD-EPI)NonAf 82.53 Random Glucose 94 Calcium 8.1 L Phosphorus 1.7 L Magnesium 2.3 Total Bilirubin 0.6 Direct Bilirubin 0.2 AST 34 ALT 41 Alkaline Phosphatase 120 H Total Protein 5.9 L Albumin 3.0 L Active Medications Generic Name Dose Route Start Last Admin Trade Name Freq PRN Reason Stop Dose Admin Acetaminophen 1,000 mg 12/12/18 14:47 12/12/18 15:22 Ofirmev Injection - IVPB 1,000 mg Q6H PRN Administration PAIN LEVEL 6-10 Fentanyl 25 mcg 12/14/18 13:58 Sublimaze Injection - IVPUSH 12/15/18 13:57 [id number] PRN PAIN-PACU ORDER X 4 DOSES ONLY Ceftriaxone Sodium 1 gm/ 50 mls @ 100 mls/hr 12/12/18 11:00 12/14/18 09:53 Dextrose IVPB 100 mls/hr DAILY [facility] Administration Protocol Metronidazole 500 mg in 100 mls @ 100 mls/hr 12/12/18 11:00 12/14/18 10:46 Flagyl 500mg Premixed Ivpb - IVPB 100 mls/hr Q8H-IV [facility] Administration Potassium Chloride/Sodium Chloride 20 meq in 1,000 mls @ 100 mls/hr 12/13/18 12:15 12/13/18 14:29 Ns+20 Meq Kcl - IV 100 mls/hr ASDIR [facility] Administration Lactated Ringer's 1,000 mls @ 75 mls/hr 12/14/18 14:00 Lactated Ringers Solution IV ASDIR [facility] Levothyroxine Sodium 50 mcg 12/12/18 10:30 12/14/18 06:08 Synthroid - PO 50 mcg DAILY@0700 [facility] Administration Morphine Sulfate 1 mg 12/12/18 10:26 12/13/18 02:50 Morphine Sulfate IVPUSH 1 mg Q4H PRN Administration PAIN LEVEL 6-10 Patient's Own 1 each 12/12/18 11:30 12/14/18 09:54 Medication :Cartia- PO 1 each Xt 180 Mg Caps BID [facility] Administration Ondansetron HCl 4 mg 12/12/18 10:51 Zofran Injection IVPUSH Q6H PRN NAUSEA Ondansetron HCl 4 mg 12/14/18 13:58 Zofran Injection IVPUSH 12/15/18 13:57 Q6H PRN NAUSEA AND/OR VOMITING Pantoprazole Sodium 40 mg 12/13/18 10:00 12/14/18 09:54 Protonix Iv IVPUSH 40 mg DAILY [facility] Administration Potassium Phos/Sodium Phos 2 packet 12/13/18 10:00 12/14/18 09:54 Phos-Nak Packet - PO 12/14/18 22:01 Not Given BID [facility] Microbiology 12/12/18 08:05 Blood - Peripheral Venous Blood Culture - Preliminary NO GROWTH OBTAINED AFTER 48 HOURS, INCUBATION TO CONTINUE FOR 3 DAYS. 12/12/18 08:00 Blood - Peripheral Venous Blood Culture - Preliminary NO GROWTH OBTAINED AFTER 48 HOURS, INCUBATION TO CONTINUE FOR 3 DAYS. ASSESSMENT/PLAN: 88 yof with PMHx of CAD s/p CABG/BioAVR, HTN, HLD, Thoracic aortic aneurysm with acute gall stone pancreatitis +/- acute cholecystitis -Acute gallstone pancreatitis+/- cholecystitis -Abnormal LFTs, from above -Uncontrolled HTN, suspect from pain, unable to get meds and while coat HTN -Thrombocytopenia -Hypomagnesemia/Hypophosphatemia -HLD -CAD s/p CABG -Thoracic aortic aneurysm Plan: Markedly improved, abdominal symptoms resolved. LFTs almost normalized. GI/surgery input noted. For Lap CCY today, IV hydration Ceftriaxone/flagyl day 3, likely d/c post surgery. Blood cx neg so far. Tylenol/morphine/Zofran. Replete Mg/phos prn Cardiology input appreciated, acceptable cardiovascular risk. Continue Cartia XT (reports allergy to multiple other anti-HTN), BP better. Continue levothyroxine, Hold statin/ASA. GIPPX with Protonix DVTPPX platelets stable, resume lovenox post surgery. PT eval noted Dispo dc in 24 hours post surgery if no events and tolerating diet well. Plan discussed with patient and daughter at bedside in detail, all questions answered. Visit type - Emergency Visit Emergency Visit: Yes ED Registration Date: 12/12/18 Care time: The patient presented to the Emergency Department on the above date and was hospitalized for further evaluation of their emergent condition. - New Patient This patient is new to me today: No - Critical Care Critical Care patient: No - Discharge Referral Referred to [facility] No
[2018-12-14] MEDS ORDERED: CEFOXITIN SODIUM 1 GM IVPB ONE (14:28)
[2018-12-14 14:30] VITALS: BMI 18.6
[2018-12-14] MEDS ORDERED: KETOROLAC TROMETHAMINE 30 MG/1 ML VIAL ONE (14:30)
[2018-12-14] MEDS ORDERED: EPHEDRINE SULFATE/0.9% NACL/PF 50 MG/10 ML SYRINGE NR ONE (14:46)
[2018-12-14] MEDS ORDERED: cefOXitin SODIUM 1 GM VIAL (RESTRICTED TO ID) IVPB ONE (14:50)
[2018-12-14] MEDS ORDERED: BUPIVACAINE HCL/PF (5 MG/ML) 30 ML VIAL IJ ONE (15:40)
[2018-12-14] MEDS ORDERED: NEOSTIGMINE METHYLSULFATE 0.5 MG/ML - 10 ML MDV ONE (15:45)
[2018-12-14] MEDS ORDERED: BENZOIN TINCTURE SWABSTICK TP ONE (15:47)
--- NOTE | 2018-12-14 16:31 | OP ---
Operative Note - Note: Operative Date: 12/14/18 Pre-Operative Diagnosis: gallstone pancreatitis Operation: laparoscopic cholecystectomy Findings: some edema at liver interface, liver somewhat nodular-appearing; critical view identified, some bile spillage from clipped end prior to removal - irrigated and suctioned Post-Operative Diagnosis: Same as Pre-op Surgeon: Christian Duckworth Loan Officer: Ac Page Anesthesiologist/[employer] OPERATOR: Yaya Appiah Anesthesia: General, Local (10ml 0.5% marcaine) Specimens Removed: gallbladder to pathology Estimated Blood Loss (mls): 5 Fluid Volume Replaced (mls): 800 (crystalloid) Operative Report Dictated: Yes
[2018-12-14] MEDS ORDERED: POTASSIUM PHOSPHATE 15 MM in SODIUM CHLORIDE 250 ML IVPB ONE ×2 (16:40→17:00)
[2018-12-14] MEDS ORDERED: ACETAMINOPHEN 325 MG TABLET (FP) PO SCH (18:00)
[2018-12-14] MEDS: ACETAMINOPHEN 325 MG TABLET (FP) PO SCH (18:35)
[2018-12-14] MEDS: SODIUM CHLORIDE 0.9%/KCL 20 MEQ/1,000 ML INFUS.BAG IV SCH (18:36)
[2018-12-14] MEDS ORDERED: IBUPROFEN 200 MG TABLET PO SCH (21:00)
[2018-12-14] MEDS: IBUPROFEN 200 MG TABLET PO SCH (21:04)
[2018-12-15] MEDS: ACETAMINOPHEN 325 MG TABLET (FP) PO SCH ×3 (01:21→13:38)
[2018-12-15] MEDS: IBUPROFEN 200 MG TABLET PO SCH ×2 (03:42→10:12)
[2018-12-15] MEDS ORDERED: LEVOTHYROXINE NA 50 MCG TABLET (FP) PO SCH (07:00)
[2018-12-15 08:39] LABS: BASO % 0.1 % (0-2.0); HEMATOCRIT 38.1 % (32.4-45.2); HEMOGLOBIN 12.7 GM/dL (10.7-15.3); MCH 31.7 pg (25.7-33.7); MCHC 33.4 g/dl (32.0-36.0); MEAN CELL VOLUME 94.7 fl (80-96); MEAN PLT VOLUME 9.1 fl (7.5-11.1); MONO % 2.9 % (3.8-10.2); PLATELET COUNT 150 K/MM3 (134-434); RBC 4.02 M/mm3 (3.60-5.2); RDW 15.3 % (11.6-15.6); WHITE BLOOD COUNT 9.1 K/mm3 (4.0-10.0)
[2018-12-15 09:11] LABS: ALBUMIN 3.1 g/dl (3.4-5.0); BILIRUBIN,DIRECT 0.2 mg/dL (0.0-0.2); BILIRUBIN,TOTAL 0.6 mg/dL (0.2-1); BLOOD UREA NITROGEN 12.3 mg/dL (7-18); CALCIUM 8.8 mg/dL (8.5-10.1); CREATININE 0.6 mg/dL (0.55-1.3); PHOSPHOROUS 2.7 mg/dL (2.5-4.9); POTASSIUM 4.3 mmol/L (3.5-5.1); TOT PROT 6.4 g/dl (6.4-8.2)
[2018-12-15] MEDS ORDERED: cefTRIAXone SODIUM 1 GM VIAL ONE (09:11)
[2018-12-15] MEDS ORDERED: DEXTROSE 5%-WATER - 50 ML IVPB ONE (09:11)
[2018-12-15] MEDS ORDERED: PANTOPRAZOLE SODIUM 40 MG VIAL IVPUSH SCH (10:00)
[2018-12-15] MEDS ORDERED: CEFTRIAXONE 1 GM in DEXTROSE 5%-WATER - 50 ML IVPB SCH (10:00)
[2018-12-15 10:22] VITALS: BP 150/56
[2018-12-15 11:00] LABS: ANISOCYTOSIS 0; MACROCYTOSIS 0; PLATELET ESTIMATE DECREASED
--- NOTE | 2018-12-15 12:16 | PN ---
Progress Note (short form) - Note Progress Note: s: no chest pain, palps, dyspnea. s/p lap kelsi Current Medications Acetaminophen (Tylenol -) 650 mg PO Q6H [facility] Last Admin: 12/15/18 06:12 Dose: 650 mg Ibuprofen (Advil -) 200 mg PO Q6H [facility] Last Admin: 12/15/18 10:12 Dose: 200 mg Levothyroxine Sodium (Synthroid -) 50 mcg PO DAILY@0700 [facility] Last Admin: 12/15/18 06:12 Dose: 50 mcg Non-Formulary Medication (Patient's Own Med) 1 each PO BID [facility] Last Admin: 12/15/18 10:13 Dose: 1 each Vital Signs Period Temp Pulse Resp BP Sys/Machado Pulse Ox Last 24 Hr 97.5 F-98.6 F 60-96 15-23 132-172/54-96 94-100 Constitutional: Yes: No Distress Cardiovascular: Yes: Regular Rate and Rhythm Respiratory: Yes: CTA Bilaterally Gastrointestinal: Yes: Soft (NT, no rebound/guarding) Edema: No Neurological: Yes: Alert, Oriented no jaundice, diaphoresis not agitated Assessment/Plan ECG: NSR, LVH, biatrial abnormality. no signif ST-T, ? old IWMI (no signif change vs prior 09/01) CXR: clear lungs/pleura. lungs slightly hyperaerated gallstone pancreatitis - s/p lap kelsi, manage per surgery h/o CABG/bioAVR: -on aspirin, atorva 20 at home--held here (preop, NPO, ast/lt up) - restart aspirin when able post op, monitor LFTs -no angina, no acute ischemia on ekg, trop neg x 1. no further w/u needed -routine outpt f/u (dr goins, [place]) HTN: -on Cartia XT 180 bid at home. cannot tolerate generic diltiazem (diffuse muscle aches), has h/o intolerances/reactions to mult meds (see list in chart). -also with known white coat HTN -bp initially elevated--? related to acute abd pain, likely component of anxiet/ white coat effect based on her history, now normalized -continue home Cartia XT dose, observe bp trend "thoracic aorta aneurysm" (+/-): -borderline dilation of descending thoracic aorta 3.7 cm on 07/2017 CT report-- unchanged on present study (measured as 3.5 cm) -routine bp, lipids mgmt--to be followed as outpt
--- NOTE | 2018-12-15 12:19 | PN ---
Progress Note, Physician History of Present Illness: Pt with gallstone pancreatitis. MRCP showed no cbd stones. Now s/p lap kelsi yesterday. She is seen and examined in bed, has been up ambulating much of the morning. She reports no pain, no N/V. Feels well "like my old self," tolerating diet, had eggs and cereal for breakfast. Using IS and able to cough. - Current Medication List Current Medications: Active Medications Acetaminophen (Tylenol -) 650 mg PO Q6H [facility] Last Admin: 12/15/18 06:12 Dose: 650 mg Ibuprofen (Advil -) 200 mg PO Q6H [facility] Last Admin: 12/15/18 10:12 Dose: 200 mg Levothyroxine Sodium (Synthroid -) 50 mcg PO DAILY@0700 [facility] Last Admin: 12/15/18 06:12 Dose: 50 mcg Non-Formulary Medication (Patient's Own Med) 1 each PO BID [facility] Last Admin: 12/15/18 10:13 Dose: 1 each - Objective Vital Signs: Vital Signs Temperature 97.8 F 12/15/18 10:00 Pulse Rate 85 12/15/18 10:00 Respiratory Rate 20 12/15/18 10:00 Blood Pressure 150/56 L 12/15/18 10:00 O2 Sat by Pulse Oximetry (%) 94 L 12/15/18 09:00 Constitutional: Yes: No Distress, Calm, Thin Eyes: Yes: Conjunctiva Clear, EOM Intact. No: Sclera Icterus HENT: Yes: Atraumatic, Normocephalic Gastrointestinal: Yes: Soft. No: Distention, Tenderness, Tenderness, Epigastrium Extremities: No: Cool, Cyanosis Integumentary: Yes: Incision (x4 dressed). No: Jaundice, Rash Wound/Incision: Yes: Steri Strips (under dressings), Dressing Dry and Intact (x4 ). No: Dressing Removed Neurological: Yes: Alert, Oriented Labs: CBC, BMP 12/15/18 08:04 12/15/18 08:04 CMP Sodium 139 mmol/L (136-145) 12/15/18 08:04 Potassium 4.3 mmol/L (3.5-5.1) 12/15/18 08:04 Chloride 110 mmol/L (98-107) H 12/15/18 08:04 Carbon Dioxide 22 mmol/L (21-32) 12/15/18 08:04 Anion Gap 7 MMOL/L (8-16) L 12/15/18 08:04 BUN 12.3 mg/dL (7-18) 12/15/18 08:04 Creatinine 0.6 mg/dL (0.55-1.3) 12/15/18 08:04 Est GFR (CKD-EPI)AfAm 95.66 12/15/18 08:04 Est GFR (CKD-EPI)NonAf 82.53 12/15/18 08:04 Random Glucose 135 mg/dL (74-106) H 12/15/18 08:04 Calcium 8.8 mg/dL (8.5-10.1) 12/15/18 08:04 Phosphorus 2.7 mg/dL (2.5-4.9) 12/15/18 08:04 Magnesium 2.0 mg/dL (1.8-2.4) 12/15/18 08:04 Total Bilirubin 0.6 mg/dL (0.2-1) 12/15/18 08:04 Direct Bilirubin 0.2 mg/dL (0.0-0.2) 12/15/18 08:04 AST 60 U/L (15-37) H 12/15/18 08:04 ALT 53 U/L (13-61) 12/15/18 08:04 Alkaline Phosphatase 126 U/L (45-117) H 12/15/18 08:04 Total Protein 6.4 g/dl (6.4-8.2) 12/15/18 08:04 Albumin 3.1 g/dl (3.4-5.0) L 12/15/18 08:04 Problem List - Problems (1) Gallstone pancreatitis Code(s): K85.10 - BILIARY ACUTE PANCREATITIS WITHOUT NECROSIS OR INFECTION (2) Calculus of gallbladder and bile duct with obstruction without cholecystitis Code(s): K80.71 - CALCULUS OF GB AND BILE DUCT W/O CHOLECYST W OBSTRUCTION (3) Epigastric pain Assessment/Plan: resolved Code(s): R10.13 - EPIGASTRIC PAIN (4) Hypertension Code(s): I10 - ESSENTIAL (PRIMARY) HYPERTENSION Qualifiers: Hypertension type: essential hypertension Qualified Code(s): I10 - Essential (primary) hypertension (5) Hypothyroidism Code(s): E03.9 - HYPOTHYROIDISM, UNSPECIFIED Qualifiers: Hypothyroidism type: unspecified Qualified Code(s): E03.9 - Hypothyroidism , unspecified (6) Hyperlipidemia Code(s): E78.5 - HYPERLIPIDEMIA, UNSPECIFIED Qualifiers: Hyperlipidemia type: unspecified Qualified Code(s): E78.5 - Hyperlipidemia , unspecified Assessment/Plan POD1 s/p laparoscopic cholecystectomy for gallstone pancreatitis doing very well no pain on alternating tylenol and ibuprofen, no tenderness incisional dressings c/d/i holding asa - may resume at home on Friday OOB/ambulating, tolerating low-fat diet, voiding PT to see but pt ambulating well with nurses; she has 26 stairs to climb to her apartment (no elevator) ok for d/c home with lifting restrictions to f/u in 2 weeks instructions in d/c plan no Rx needed IV fluids and abx stopped discussed with Dr. Lau
--- NOTE | 2018-12-15 13:01 | DS ---
Physical Exam: SUBJECTIVE: Patient seen and examined. ambulating in hallway, denies any nausea , vomiting, pain or complaints, tolerating diet well. OBJECTIVE: Vital Signs Period Temp Pulse Resp BP Sys/Machado Pulse Ox Last 24 Hr 97.5 F-98.6 F 60-96 15-23 132-172/54-96 94-100 Intake & Output 12/12/18 12/13/18 12/14/18 12/15/18 23:59 23:59 23:59 23:59 Intake Total 2600 2075 2800 400 Output Total 5 Balance 2600 2075 2795 400 Weight 105 lb PHYSICAL EXAM GENERAL: ambulating in hallway, no acute distress CVS:S1S2 regular Chest: CTAB, no rales or wheezing Neck: no neck vein distension Abdomen: soft, NT throughout, laparoscopic sites, pos bowel sounds Extremities: no edema psych: pleasant, co-operative LABS Laboratory Results - last 24 hr 12/15/18 12/15/18 08:04 08:04 WBC 9.1 RBC 4.02 Hgb 12.7 Hct 38.1 MCV 94.7 MCH 31.7 MCHC 33.4 RDW 15.3 Plt Count 150 MPV 9.1 Absolute Neuts (auto) 8.4 H Neutrophils % 92.0 H Neutrophils % (Manual) 85.2 H Band Neutrophils % 5.9 Lymphocytes % 5.0 L D Lymphocytes % (Manual) 5.9 L Monocytes % 2.9 L Monocytes % (Manual) 3 L Eosinophils % 0.0 D Eosinophils % (Manual) 0.0 Basophils % 0.1 D Basophils % (Manual) 0.0 Myelocytes % (Man) 0 Promyelocytes % (Man) 0 Blast Cells % (Manual) 0 Nucleated RBC % 0 Metamyelocytes 0 Hypochromia 0 Platelet Estimate Decreased Polychromasia 0 Poikilocytosis 0 Anisocytosis 0 Microcytosis 0 Macrocytosis 0 Sodium 139 Potassium 4.3 Chloride 110 H Carbon Dioxide 22 Anion Gap 7 L BUN 12.3 Creatinine 0.6 Est GFR (CKD-EPI)AfAm 95.66 Est GFR (CKD-EPI)NonAf 82.53 Random Glucose 135 H Calcium 8.8 Phosphorus 2.7 Magnesium 2.0 Total Bilirubin 0.6 Direct Bilirubin 0.2 AST 60 H ALT 53 Alkaline Phosphatase 126 H Total Protein 6.4 Albumin 3.1 L Microbiology 12/12/18 08:05 Blood - Peripheral Venous Blood Culture - Preliminary NO GROWTH OBTAINED AFTER 72 HOURS, INCUBATION TO CONTINUE FOR 2 DAYS. 12/12/18 08:00 Blood - Peripheral Venous Blood Culture - Preliminary NO GROWTH OBTAINED AFTER 72 HOURS, INCUBATION TO CONTINUE FOR [address] chest: FINDINGS: Again noted is aneurysm dilatation of the distal thoracic aorta measuring 3.5 x 3.4 cm. Significant calcified plaque is seen involving the thoracic aorta and aortic arch In both apices and upper lobes is pleural thickening with scattered calcifications compatible with chronic changes also noted on prior study Again noted is cardiomegaly Patient is status post sternotomy with aortic valve replacement There is no mediastinal, axillary or hilar lymphadenopathy. There are no pulmonary nodules or masses identified but IV contrast can obscure small nodules. There is no pericardial or pleural effusion. Impression: Stable appearance aneurysmal dilatation distal thoracic aorta Other comments as noted above CT A/p: FINDINGS: There is significant fatty inflammation noted posterior and inferior to the pancreas and extending into the lower abdomen compatible with a mesenteric inflammation And also extending to the right lower quadrant where free fluid is also noted. These findings are compatible with acute pancreatitis. No pseudocyst identified There are multiple gallstones identified.. There is mild thickening of gallbladder wall which may indicate either primary or secondary inflammation There are no focal lesions of the liver or spleen or adrenal glands. There are bilateral renal cysts. A large left renal cyst is noted to have partially calcified contreras which is also noted previously There is no hydronephrosis No evidence of bowel obstruction. The appendix is not identified. There are multiple tics of the colon but no evidence of acute diverticulitis. Urinary bladder is grossly unremarkable. The uterus is not identified; may be surgically absent. 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 Although a primary acute cholecystitis cannot be excluded. Gall bladder US: FINDINGS: The liver is normal in size with no focal lesions There are multiple mobile gallstones within the gallbladder No abnormal bile duct dilatation Visualized portions of the pancreas, aorta and IVC unremarkable The right kidney measures 9.6 cm. In the midportion right kidney 4.1 cm cyst IMPRESSION: Cholelithiasis. No sonographic evidence of acute cholecystitis or acute pancreatitis. Recommend follow-up as clinically warranted MRCP: FINDINGS: There is a small right-sided pleural effusion with overlying atelectasis. The liver is normal in size with no evidence of abnormal loss of signal on out of phase imaging to suggest fatty infiltration. There is no evidence of focal hepatic signal abnormality. The spleen is normal in size with no evidence of focal abnormal signal. The pancreatic head is prominent and heterogeneous with peripancreatic edema. Edema is seen tracking inferiorly along the retroperitoneal planes and paracolic catheters. There is trace perihepatic and perisplenic ascites. The gallbladder is distended containing gallstones and sludge. There is no significant gallbladder wall thickening. There is trace pericholecystic fluid. The CBD is normal in caliber with no evidence of filling defects. There is no intrahepatic biliary ductal dilatation. Stones seen in the cystic duct. The adrenal glands are unremarkable. There are bilateral renal cysts the largest on the left measures 3.7 cm and the largest on the right measures 4.2 cm. There are no abnormally dilated bowel loops.. The visualized osseous structures are grossly unremarkable. IMPRESSION: Cholelithiasis with no MR evidence of acute cholecystitis. No choledocholithiasis or pancreaticobiliary ductal dilatation seen. MRI findings suggestive of pancreatic head pancreatitis with extensive peripancreatic edema tracing inferiorly along the retroperitoneal planes and paracolic gutters coupled with trace perihepatic and perisplenic ascites and small free peritoneal ascites in addition to trace right- sided pleural effusion. No walled off fluid collection seen to suggest pseudocyst. Further evaluation of the pancreas and vasculature is limited due to lack of contrast. Bilateral renal cysts. HOSPITAL COURSE: Date of Admission:12/12/18 Date of Discharge: 12/15/18 Minutes to complete discharge: 40 Discharge Summary Reason For Visit: GAS PAIN Current Active Problems Abdominal pain (Acute) Acute pancreatitis (Acute) Calculus of gallbladder and bile duct with obstruction without cholecystitis ( Acute) Epigastric pain (Acute) Gallstone pancreatitis (Acute) Hyperlipidemia (Acute) Hypertension (Acute) Hypothyroidism (Acute) Hospital Course: 88 yof with PMHx of CAD s/p CABG/BioAVR, HTN, HLD, Thoracic aortic aneurysm with abdominal pain, found with acute gall stone pancreatitis and cholecystitis vs possible extension of pancreatic inflammation to gall bladder wall. She was placed on IV hydration and pain control, her LFTs improved. GI and surgery were consulted. She had MRCP showed pancreatitis and cholelithiasis but no biliary dilatation or cholecystitis. She was seen by cardiology and deemed acceptable risk for surgery. She had lap cholecystectomy on 12/14 with uneventful post operative course. She is currently tolerating diet well with no pain and no abdominal concerns. She reported having white coat HTN and allergic to generic diltiazem and lisinopril. BP Improved with home cartia XT and pain control. She will be discharged in stable condition with outpatient LFTs monitoring and surgery follow up. Condition: Good - Instructions Diet, Activity, Other Instructions: Postoperative instructions: You had a laparoscopic cholecystectomy on 12/14/[address] Christian Duckworth of [facility], for gallstone pancreatitis. Activity: Resume your usual activities gradually, but no heavy exertion or lifting more than 10-15 pounds for 1 month. Remove dressings 48 hours after surgery; sticky tapes underneath will fall off by themselves. You may shower daily starting then, just pat the incision areas dry. No bath or swimming until skin incisions have healed. Eat lightly at first, but advance to a low-fat diet as tolerated. Pain: For pain, you may use and alternate Tylenol (acetaminophen) 1-2 pills every 6 hours each as needed; this means that you can take one OR the other at 3 -hour intervals. Do not take more than 4000mg of acetaminophen in a day. Take medications as prescribed or indicated on the labeling. Follow-up: Call Dr. Duckworth's office at [phone] to make your postop appointment (Friday in approximately 2 weeks after surgery). Clinic is held in the [facility] on the first floor of [facility]. Call the office if you have: * increasing pain not responsive to pain medication * fever of 101F or higher * vomiting * unusual or increasing bleeding or drainage from wounds * increasing redness or swelling at wound sites Also, see your primary medical doctor within 1-2 weeks. Blood work to check your liver (liver function test) in 1 week Follow up with your director of officiating to monitor known Aortic aneurysm Referrals: Christian Duckworth MD [Staff Physician] - Kenney Holguin MD [Primary Care Provider] - Disposition: VNS/HOME HEALTH CARE - Home Medications Comprehensive Discharge Medication List: Ambulatory Orders Aspirin [Aspirin EC] 81 mg PO DAILY 01/13/14 Levothyroxine [Synthroid -] 50 mcg PO DAILY 01/13/14 Atorvastatin Ca [Lipitor] 20 mg PO DAILY 09/09/18 Cholecalciferol (Vitamin D3) [D3-2000] 2,000 unit PO DAILY 09/09/18 Diltiazem HCl [Cartia Xt] 180 mg PO BID 09/09/18 Ubidecarenone [Co Q-10] 300 mg PO DAILY 09/09/18 Acetaminophen [Tylenol .Regular Strength -] 650 mg PO Q6H tablet 12/15/18 This patient is new to me today: No Emergency Visit: Yes ED Registration Date: 12/12/18 Care time: The patient presented to the Emergency Department on the above date and was hospitalized for further evaluation of their emergent condition. Critical Care patient: No - Discharge Referral Referred to [facility] Med P.C.: No
[2018-12-15 14:50] VITALS: PULSE 97; TEMP 98.3
--- NOTE | 2018-12-16 17:53 | PATH ---
Surgical Pathology Report Patient Name: ARLET GARCIA Med. Rec. #: [id number] /Age/Gender: 1930 (Age: 88) / F Account: [id number] Location: [facility] MED/SURG Taken: 12/14/2018 Received: 12/15/2018 Reported: 12/16/2018 Physicians: Paola Rudolph MD Specimen(s) Received GALLBLADDER Clinical History Gallstone pancreatitis Final Diagnosis GALLBLADDER, LAPAROSCOPIC CHOLECYSTECTOMY: CHRONIC CHOLECYSTITIS WITH CHOLELITHIASIS. Electronically Signed Lacy Krause M.D. Gross Description Received in formalin, labeled "gallbladder," is a 6.2 x 2.4 x 2.0 cm. gallbladder with a 0.2 cm. in length portion of cystic duct attached. The outer surface is white green and varies from smooth to shaggy. The lumen contains green, tenacious bile as well as multiple black, irregular choleliths ranging from 0.4-0.7 cm in greatest dimension. The mucosa is dark green and velvety. The wall of the gallbladder ranges from 0.1-0.2 cm. in thickness. [employer] sections are submitted in one cassette. /12/15/201812/15/2018
--- NOTE | 2018-12-28 13:27 | OP ---
DATE OF OPERATION: 12/14/2018 PREOPERATIVE DIAGNOSIS: Gallstone pancreatitis. POSTOPERATIVE DIAGNOSIS: Gallstone pancreatitis. PROCEDURE: Laparoscopic cholecystectomy. SURGEON: Christian Duckworth MD MOSS BLEACHER: Ac Page MD ANESTHESIA: General endotracheal and local 10 mL of 0.5% Marcaine. ESTIMATED BLOOD LOSS: 5 mL. FLUIDS: 800 mL of crystalloid. SPECIMEN: Gallbladder to Pathology. FINDINGS: Some edema at the liver interface. The liver was somewhat nodular appearing. Critical view was identified. There was a small bit of bile spillage which was irrigated and suctioned. DISPOSITION: Stable and extubated to PACU. INDICATIONS FOR PROCEDURE: The patient is an 88-year-old female with a history of hypertension, hyperlipidemia, hypothyroidism, status post CABG x2 with porcine aortic valve replacement, and a distal thoracic aortic aneurysm, who initially presented to the emergency room with upper abdominal pain associated with some nausea but no vomiting. She was initially seen at [facility] emergency room with a white count of 11.6, elevated liver function tests and amylase and lipase, indicating pancreatitis. Ultrasound showed multiple gallstones but no evidence of cholecystitis. CT also showed pancreatic inflammation with possible secondary inflammatory changes around the gallbladder. She was transferred to [facility] and underwent MRCP, which showed no evidence of common bile duct stones. Over the last couple of days, her pain has improved and her liver functions and lipase have decreased significantly. Discussion was held with the patient regarding risks, benefits, and alternatives of laparoscopic, possible open, cholecystectomy, including but not limited to bleeding, infection, injury to adjacent structures, bile leak or ductal injury, intraabdominal abscess, incisional hernia, need for further procedures, and alternatives including delayed or no surgery, with consequent risks of recurrence of pancreatitis, cholecystitis, cholangitis, or sepsis. The patient is agreeable to proceed with an operation, signed informed consent for the same, and is now brought to the OR for this procedure. OPERATIVE TECHNIQUE: The patient was brought to the operating room and laid supine on the operating room table. Sequential compression devices were applied to bilateral lower extremities, and appropriate antibiotics were given immediately in the preoperative period. After induction and intubation by Anesthesia, the patient's abdomen was prepped and draped in sterile fashion. A small supraumbilical midline incision was made with a scalpel and carried into subcutaneous tissues with electrocautery until the abdominal wall fascia was identified, scored and elevated with Michelle clamps. The peritoneum was entered bluntly with the tip of a clamp , and a fingertip inserted to ensure entry into the abdominal cavity and the absence of any underlying adhesions. A stay suture of 0 Vicryl in [id number] fashion was placed in the fascia for later closure, and a Lyndsey trocar introduced directly into the abdominal cavity and secured in place with the balloon. The abdomen was insufflated with carbon dioxide. The patient was placed in reverse Trendelenburg position, and the laparoscope inserted to inspect the abdominal cavity. Three additional 5-mm ports were placed under direct vision, 1 in the subxiphoid and 2 in the right upper quadrant. Graspers were introduced through the right side, one to grasp the fundus of the gallbladder and elevate it over the liver edge, which was also noted to be somewhat nodular in appearance, and a second to grasp the infundibulum of the gallbladder and retract it laterally. A [place] dissector was used through the operative port to begin dissecting at the base of the gallbladder. Ultimately the cystic duct and cystic artery were both isolated and clearly visualized as the only 2 structures clearly entering the gallbladder, with the liver bed visible behind the base of the gallbladder and the 2 structures. The cystic duct and then the cystic artery were both clipped, 2 proximally and 1 distally, and divided with endoscissors. The hook cautery was used to begin taking the gallbladder off of the liver bed. There was a little bit of edema present at the liver interface facilitating dissection. Shortly before the gallbladder was fully free, there was a little bit of bile spillage from the clipped end of the gallbladder. Once the gallbladder had been completely removed from the liver, it was placed in an EndoCatch bag and retrieved out the umbilical port site and passed off the table as a specimen. Once the Lyndsey trocar and pneumoperitoneum had been reestablished, the operative field was inspected, irrigated for the bile spill, and fluid suctioned clear from the area. Hemostasis was noted to be complete. The 5-mm ports were then removed under direct vision, the Lyndsey trocar and camera also removed, and the abdomen exsufflated of carbon dioxide. The stay suture at the umbilicus was tied to close the fascia there. Hemostasis was achieved in the port sites with electrocautery where needed. Local anesthetic was injected into all port sites. Skin was closed with 4-0 Vicryl subcuticular sutures, including a running at the umbilicus. Benzoin and Steri- Strips were applied over the incisions, and dressings of gauze and Tegaderm placed over these. Count were correct at the end of the procedure. The patient was then awakened, extubated by Anesthesia, moved back to a stretcher and taken to the recovery room in stable condition, having tolerated the procedure well. Dr. Page was an essential sugar laboratory assistant throughout the procedure, including facilitating entry into the abdominal cavity, grasping and manipulation of the gallbladder throughout the case, assistance with retrieval of the gallbladder and closure of the skin. Paola Rudolph/[id number] MTDD
== END 2018-12-15 15:38 | disposition home health service (06) | DRG 418 ==
LOC: FER 21:23 → FM/S 12-12 02:39 → J7W 12-12 06:31
PROVIDERS: ADMIT Internal Medicine; ATTEND Hospitalist
PROC: 0FT44ZZ Resection of Gallbladder, Percutaneous Endoscopic Approach (ICD-10-PCS; principal; 2018-12-14 12:00)
DX: K85.10 Biliary acute pancreatitis without necrosis or infection (principal); K80.10 Calculus of gallbladder with chronic cholecystitis without obstruction; I10 Essential (primary) hypertension; D69.6 Thrombocytopenia, unspecified; I71.2 Thoracic aortic aneurysm, without rupture; I25.10 Atherosclerotic heart disease of native coronary artery without angina pectoris; E78.5 Hyperlipidemia, unspecified; E03.9 Hypothyroidism, unspecified; E83.42 Hypomagnesemia; E83.39 Other disorders of phosphorus metabolism; Z95.1 Presence of aortocoronary bypass graft; K59.00 Constipation, unspecified
CPT/HCPCS: 36415; 71045-TC-FY; 71260-TC; 74019-TC-FY; 74177-TC; 74181-TC; 76705-TC; 80048; 80053; 80076; 81003; 81015; 82150; 82550; 82962; 83605; 83690; 83735; 84100; 84484; 85025; 85610; 86140; 87040; 88304-TC; 93005; 93010; 94760; 97116-GP; 97161-GP; 99283-25; J0131; J7030

== ENCOUNTER 2019-12-29 11:03 | Emergency (ER) | payer OTHER, MEDICARE ==
[2019-12-29 11:14] VITALS: BP 166/56; PULSE 81; TEMP 97.9; BMI 19.5
[2019-12-29] MEDS ORDERED: SODIUM CHLORIDE 500 ML IV STA (11:25)
[2019-12-29 12:06] LABS: EOS % 0.9 % (0-4.5); HEMATOCRIT 38.4 % (32.4-45.2); HEMOGLOBIN 12.8 GM/dl (10.7-15.3); MCH 30.7 pg (25.7-33.7); MCHC 33.4 g/dl (32.0-36.0); MEAN PLT VOLUME 8.1 fl (7.5-11.1); MONO % 9.5 % (3.8-10.2); NEUT % 65.6 % (42.8-82.8); PLATELET COUNT 165 K/MM3 (134-434); RBC 4.17 M/mm3 (3.60-5.2); RDW 13.8 % (11.6-15.6); WHITE BLOOD COUNT 5.8 K/mm3 (4.0-10.8)
[2019-12-29 12:14] LABS: ALBUMIN 4.2 g/dl (3.4-5.0); BILIRUBIN,TOTAL 0.6 mg/dl (0.2-1); CALCIUM 9.7 mg/dl (8.5-10); CREATININE 0.8 mg/dl (0.55-1.3); POTASSIUM 3.9 mmol/L (3.5-5.1); TOT PROT 7.5 g/dl (6.4-8.2)
--- NOTE | 2019-12-29 12:28 | PDOC ---
History of Present Illness - General Chief Complaint: Lightheaded Stated Complaint: LEGS NOT STRONG,LIGHTHEADED Time Seen by Provider: 12/29/19 11:04 - History of Present Illness Initial Comments: 12/29/19 12:28 89 F with h/o CAD s/p CABG, HTN, HLD, pancreatitis, cholelithiasis s/p cholecystectomy presenting to ED with leg weakness and lightheadedness. Pt states that she awoke this morning feeling very weak. States that she has been able to stand and walk but feels lightheaded, as if she is going to fall over. Pt denies any CP/SOB/palpitations. Denies F/C. Denies N/V/D/abdominal pain. Pt states that she has had multiple similar episodes, which she attributes to dehydration. She states that she often comes to the ER for the same problem and feels better with IV fluids. Past History - Medical History Allergies/Adverse Reactions: Allergies Allergy/AdvReac Type Severity Reaction Status Date / Time azithromycin Allergy Verified 11/08/19 10:52 clindamycin Allergy Verified 11/08/19 10:52 ezetimibe [From Zetia] Allergy Verified 11/08/19 10:52 hydroxychloroquine Allergy Verified 11/08/19 10:52 lidocaine Allergy Verified 11/08/19 10:52 lisinopril Allergy Verified 11/08/19 10:52 naproxen Allergy Verified 11/08/19 10:52 rosuvastatin calcium Allergy Verified 11/08/19 10:52 [From Crestor] diltiazem AdvReac STOMACH Verified 11/08/19 10:58 PAINS Home Medications: Ambulatory Orders Aspirin [Aspirin EC] 81 mg PO DAILY 01/13/14 Levothyroxine [Synthroid -] 50 mcg PO DAILY 01/13/14 Atorvastatin Ca [Lipitor] 20 mg PO DAILY 09/09/18 Cholecalciferol (Vitamin D3) [D3-2000] 2,000 unit PO DAILY 09/09/18 Diltiazem HCl [Cartia Xt] 180 mg PO BID 09/09/18 Ubidecarenone [Co Q-10] 300 mg PO DAILY 09/09/18 Cardiac Disorders: Yes COPD: No HTN: Yes Hypercholesterolemia: Yes Thyroid Disease: Yes - Surgical History Cardiac Surgery: Yes (AVR, CABG X2) - Psycho-Social/Smoking History Smoking History: Never smoked Have you smoked in the past 12 months: No Information on smoking cessation initiated: No - Substance Abuse Hx (Audit-C & DAST Scrn) How often the patient has a drink containing alcohol: Never Score: In Men: 4 or > Positive; In Women: 3 or > Positive: 0 Screen Result (Pos requires Nsg. Audit-10AR): Negative In the last yr the pt used illegal drug/Rx for NonMed reason: No Score: Yes response is considered Positive: 0 Screen Result (Positive result requires Nsg. DAST-10): Negative Review of Systems - Review of Systems Comments:: 12/29/19 12:31 GENERAL/CONSTITUTIONAL: No fever or chills. + lightheaded, + bilateral leg weakness. HEAD, EYES, EARS, NOSE AND THROAT: No change in vision. No ear pain or discharge. No sore throat. CARDIOVASCULAR: No chest pain, no shortness of breath, no loss of consciousness RESPIRATORY: No cough, wheezing, or hemoptysis. GASTROINTESTINAL: No nausea, vomiting, diarrhea or constipation. GENITOURINARY: No dysuria, frequency, or change in urination. MUSCULOSKELETAL: No joint or muscle swelling or pain. No neck or back pain. SKIN: No rash NEUROLOGIC: No vertigo, no change in strength/sensation. ENDOCRINE: No increased thirst. No abnormal weight change. HEMATOLOGIC/LYMPHATIC: No anemia, easy bleeding, or history of blood clots. ALLERGIC/IMMUNOLOGIC: No hives or skin allergy. *Physical Exam - Vital Signs Last Vital Signs Temp Pulse Resp BP Pulse Ox 97.9 F 81 20 166/56 L 98 12/29/19 11:04 12/29/19 11:04 12/29/19 11:04 12/29/19 11:04 12/29/19 11:04 - Physical Exam 12/29/19 12:31 "GENERAL: Awake, alert, and fully oriented, in no acute distress. HEAD: No signs of trauma EYES: PERRLA, EOMI, sclera anicteric, conjunctiva clear ENT: Auricles normal inspection, hearing grossly normal, nares patent, oropharynx clear without exudates. Moist mucosa NECK: Nontender, no stepoffs, Normal ROM, supple, no lymphadenopathy, JVD, or masses LUNGS: Breath sounds equal, clear to auscultation bilaterally. No wheezes, and no crackles HEART: Regular rate and rhythm, normal S1 and S2, no murmurs, rubs or gallops ABDOMEN: Soft, nontender, normoactive bowel sounds. No guarding, no rebound. No masses EXTREMITIES: Normal range of motion, no edema. No clubbing or cyanosis. No cords, erythema, or tenderness NEUROLOGICAL: Cranial nerves II through XII intact. 5/5 strength and sensation in all extremities, Normal speech, normal gait, normal cerebellar function SKIN: Warm, Dry, normal turgor, no rashes or lesions noted. Heart Score/ECG Review - ECG Impressions Comment:: 12/29/19 12:35 No VAHE/STDs, TWI in lateral leads (seen on prior EKG in 08/2018), intervals wnl, rate 66 ED Treatment Course - LABORATORY CBC & Chemistry Diagram: 12/29/19 11:44 12/29/19 11:44 - ADDITIONAL ORDERS Additional order review: Laboratory Results 12/29/19 12/29/19 12/29/19 12:18 11:44 11:44 Sodium 139 Potassium 3.9 Chloride 102 Carbon Dioxide 23 Anion Gap 14 BUN 21.0 H Creatinine 0.8 Est GFR (CKD-EPI)AfAm 76.83 Est GFR (CKD-EPI)NonAf 66.29 Random Glucose 94 Calcium 9.7 Total Bilirubin 0.6 AST 27 ALT 17 Alkaline Phosphatase 71 Creatine Kinase 32 Troponin I 0.03 Total Protein 7.5 Albumin 4.2 Urine Color Yellow Urine Appearance Clear Urine pH 7.0 Urine Protein Negative Urine Glucose (UA) Negative Urine Ketones Negative Urine Blood Trace-intact Urine Nitrite Negative Urine Bilirubin Negative Urine Urobilinogen 0.2 Ur Leukocyte Esterase 1+ 12/29/19 11:44 RBC 4.17 MCV 92.0 MCHC 33.4 RDW 13.8 MPV 8.1 Neutrophils % 65.6 Lymphocytes % 22.0 Monocytes % 9.5 Eosinophils % 0.9 Basophils % 2.0 - RADIOLOGY Radiology Studies Ordered: Category Date Time Status CHEST X-RAY PORTABLE* [RAD] Stat Radiology 12/29/19 11:24 Taken - Medications Given in the ED: ED Medications Discontinued Medications Generic Name Dose Route Start Last Admin Trade Name Freq PRN Reason Stop Dose Admin Sodium Chloride 500 mls @ 1,000 mls/hr 12/29/19 11:25 12/29/19 11:46 Normal Saline - IV 12/29/19 11:54 1,000 mls/hr ASDIR STA Administration Medical Decision Making - Medical Decision Making 12/29/19 12:31 89 F with leg weakness and lightheadedness. Pt with non-focal neuro exam. Possi ble dehydration, as pt reports similar episodes in the past that have resolved with fluids. Pt without any CP/SOB to suggest ACS. No F/C to suggest infectious process. - Labs, trop - CXR - UA - IVF bolus 12/29/19 12:49 Labs wnl CXR and UA unremarkable Pt reassessed - now feels much better with fluid bolus. Able to ambulate to bathroom without any weakness or lightheadedness. Pt is well appearing, with normal vitals. Clinically stable for DC at this time. I discussed the physical exam findings, ancillary test results and final diagnoses with the patient. I answered all of the patient's questions. The patient was satisfied with the care received and felt comfortable with the discharge plan and treatment plan. The patient agrees to follow up with the primary care physician within 24-72 hours. Please note this patient was evaluated during the COVID-19 crisis with the presidential [place] Act Declaration and the [facility] executive order number 202. He/she was evaluated and clinical decisions were made relative to healthcare system resources as well as clinical picture during a pandemic crisis situation. Discharge - Discharge Information Problems reviewed: Yes Clinical Impression/Diagnosis: Lightheaded, Weakness, Dehydration Disposition: HOME - Follow up/Referral - Patient Discharge Instructions Patient Printed Discharge Instructions: DI for Dehydration -- Adult Additional Instructions: Your symptoms today may be due to dehydration. Your bloodwork, X ray, and urine tests were all normal. However, this does not rule out all serious medical conditions. Your EKG showed some abnormalities that need to be followed up promptly by your permaculture contractor. Call your permaculture contractor today to arrange a follow up appointment within 48 hours. If you experience chest pain, shortness of breath, dizziness, or any other concerning symptoms, return to the ER immediately. - Post Discharge Activity
[2019-12-29 12:35] LABS: EPITHELIAL CELLS FEW /hpf
--- NOTE | 2019-12-29 15:51 | EKG ---
Test Reason : Blood Pressure : / mmHG Vent. Rate : 066 BPM Atrial Rate : 066 BPM P-R Int : 166 ms QRS Dur : 082 ms QT Int : 420 ms P-R-T Axes : 081 058 093 degrees QTc Int : 440 ms NORMAL SINUS RHYTHM LEFT ATRIAL ENLARGEMENT LEFT VENTRICULAR HYPERTROPHY WITH REPOLARIZATION ABNORMALITY ABNORMAL ECG Confirmed by MD UBALDO, YANICK ([id number]) on 12/29/2019 3:50:57 PM Referred By: [place] SALMERON Confirmed By:YANICK CONNER MD
== END 2019-12-29 13:12 | disposition home or self-care (01) ==
LOC: FER 11:03
DX: R42 Dizziness and giddiness (principal); R53.1 Weakness; E86.0 Dehydration
CPT/HCPCS: 36415; 71045-TC-FY; 80053; 81003; 81015; 82550; 84443; 84484; 85025; 87086; 93005; 99285-25

== ENCOUNTER 2020-10-11 07:29 | Emergency (ER) | payer OTHER, MEDICARE ==
[2020-10-11] MEDS ORDERED: ACETAMINOPHEN 325 MG TABLET (FP) PO ONE (07:32)
[2020-10-11] MEDS ORDERED: ACETAMINOPHEN 325 MG TABLET (FP) ONE (07:35)
[2020-10-11 07:44] VITALS: TEMP 98.5; BMI 16.5
[2020-10-11] MEDS ORDERED: LIDOCAINE HCL 1%, 10 MG/ML (50 mL VIAL) SQ ONE (08:08)
[2020-10-11] MEDS ORDERED: LIDOCAINE HCL 1%, 10 MG/ML (20ML VIAL) ONE (08:14)
[2020-10-11 09:29] VITALS: BP 149/68; PULSE 73
== END 2020-10-11 09:34 | disposition home or self-care (01) ==
LOC: FER 07:29
PROC: 0PSJXZZ Reposition Left Radius, External Approach (ICD-10-PCS; principal; 2020-10-11)
DX: S52.532A Colles' fracture of left radius, initial encounter for closed fracture (principal)
CPT/HCPCS: 73090-TC-LT-FY; 73110-TC-LT-FY; 73130-TC-LT-FY; 99284-25

== ENCOUNTER 2020-10-30 10:39 | Emergency (ER) | payer OTHER, MEDICARE ==
[2020-10-30 10:59] VITALS: BP 170/54; PULSE 83; TEMP 97.6; BMI 16.2
[2020-10-30] MEDS ORDERED: SODIUM CHLORIDE 0.9% 500 ML INFUS.BAG IV ONE (11:06)
[2020-10-30 12:11] LABS: BASO % 0.6 % (0-2.0); EOS % 1.6 % (0-4.5); HEMATOCRIT 39.7 % (32.4-45.2); LYMPH % 18.7 % (8-40); MCH 31.3 pg (25.7-33.7); MCHC 32.8 g/dl (32.0-36.0); MEAN CELL VOLUME 95.5 fl (80-96); MEAN PLT VOLUME 7.8 fl (7.5-11.1); MONO % 9.4 % (3.8-10.2); NEUT % 69.7 % (42.8-82.8); PLATELET COUNT 210 K/MM3 (134-434); RBC 4.15 M/mm3 (3.60-5.2); RDW 14.2 % (11.6-15.6); WHITE BLOOD COUNT 6.5 K/mm3 (4.0-10.8)
[2020-10-30 12:40] LABS: ACTIVATED PTT 28.9 SECONDS (25.2-36.5)
[2020-10-30 12:44] LABS: INR 1.05 (0.82-1.09); PROTHROMBIN TIME (PATIENT) 11.7 SEC (10.2-13.0)
[2020-10-30 12:53] LABS: ALK PHOS 88 U/L (45-117); ANION GAP 9 MMOL/L (8-16); BILIRUBIN,TOTAL 0.7 mg/dl (0.2-1); CALCIUM 9.7 mg/dl (8.5-10); CHLORIDE 103 mmol/L (98-107); CO2 26 mmol/L (21-32); CREATININE 0.7 mg/dl (0.55-1.3); GLUCOSE,RANDOM 99 mg/dl (74-106); MAGNESIUM 1.7 mg/dL (1.8-2.4); PHOSPHOROUS 2.9 mg/dl (2.5-4.9); SGOT/AST 28 U/L (15-37); SGPT/ALT 17 U/L (13-61); SODIUM 138 mmol/L (136-145); TOT PROT 7.3 g/dl (6.4-8.2)
[2020-10-30] MEDS ORDERED: MAGNESIUM SULF 50% (8.12 MEQ/2 ML-1 GM VIAL) IVPB ONE (13:15)
[2020-10-30] MEDS ORDERED: MAGNESIUM 1GM/D5W - 1 GM/100 ML IVPB IVPB ONE (13:17)
== END 2020-10-30 14:35 | disposition home or self-care (01) ==
LOC: FER 10:39
PROC: 3E033GC Introduction of Other Therapeutic Substance into Peripheral Vein, Percutaneous Approach (ICD-10-PCS; principal; 2020-10-30)
DX: R53.1 Weakness (principal); R26.81 Unsteadiness on feet; E86.0 Dehydration
CPT/HCPCS: 36415; 70450-TC; 71046-TC-FY; 80053; 81003; 82550; 83735; 84100; 84484; 85025; 85610; 85730; 87086; 93005; 99285-25

== ENCOUNTER 2021-04-23 12:53 | Emergency (ER) | payer OTHER, MEDICARE ==
[2021-04-23 13:49] VITALS: TEMP 98.2; BMI 19.5
[2021-04-23 14:51] LABS: ANION GAP 11 MMOL/L (8-16); CALCIUM 9.6 mg/dl (8.5-10); CHLORIDE 98 mmol/L (98-107); CO2 28 mmol/L (21-32); GLUCOSE,RANDOM 93 mg/dl (74-106); SODIUM 137 mmol/L (136-145)
[2021-04-23 14:52] LABS: BASO % 3.7 % (0-2.0); EOS % 0.4 % (0-4.5); HEMATOCRIT 37.8 % (32.4-45.2); HEMOGLOBIN 12.4 GM/dl (10.7-15.3); LYMPH % 14.2 % (8-40); MCH 31.3 pg (25.7-33.7); MCHC 32.7 g/dl (32.0-36.0); MEAN CELL VOLUME 95.6 fl (80-96); MEAN PLT VOLUME 8.3 fl (7.5-11.1); MONO % 10.3 % (3.8-10.2); NEUT % 71.4 % (42.8-82.8); PLATELET COUNT 118 10^3/uL (134-434); RBC 3.95 M/mm3 (3.60-5.2); RDW 13.9 % (11.6-15.6); WHITE BLOOD COUNT 5.5 K/mm3 (4.0-10.8)
[2021-04-23 14:57] LABS: ALBUMIN 4.6 g/dl (3.4-5.0); ALK PHOS 70 U/L (45-117); BILIRUBIN,TOTAL 0.6 mg/dl (0.2-1); CREATININE 0.7 mg/dl (0.55-1.3); SGOT/AST 29 U/L (15-37); SGPT/ALT 15 U/L (13-61); TOT PROT 7.7 g/dl (6.4-8.2)
[2021-04-23 15:24] VITALS: BP 190/90; PULSE 73
[2021-04-23 15:46] LABS: EPITHELIAL CELLS FEW /hpf
== END 2021-04-23 17:48 | disposition home or self-care (01) ==
LOC: FER 12:53
DX: R53.1 Weakness (principal); I10 Essential (primary) hypertension
CPT/HCPCS: 36415; 80053; 81003; 81015; 82550; 84484; 85025; 87086; 93005; 99284-25

== ENCOUNTER 2021-09-11 07:29 | Inpatient (IN) | payer OTHER, MEDICARE ==
[2021-09-11 09:08] LABS: INR 0.99 (0.83-1.09); PROTHROMBIN TIME (PATIENT) 11.4 SEC (9.7-13.0)
[2021-09-11 09:11] LABS: ACTIVATED PTT 33.3 SECONDS (25.2-36.5)
[2021-09-11 09:12] LABS: ALBUMIN 3.6 g/dl (3.4-5.0); BILIRUBIN,TOTAL 0.8 mg/dl (0.2-1); CALCIUM 9.1 mg/dl (8.5-10); CREATININE 0.7 mg/dl (0.55-1.3); TOT PROT 6.5 g/dl (6.4-8.2)
[2021-09-11] MEDS ORDERED: ASPIRIN COATED 81 MG TABLET.EC PO SCH (10:00)
[2021-09-11 10:02] LABS: BASO % 0.3 % (0-2.0); EOS % 0.4 % (0-4.5); HEMATOCRIT 33.2 % (32.4-45.2); HEMOGLOBIN 11.2 GM/dL (10.7-15.3); LYMPH % 24.8 % (8-40); MCH 31.5 pg (25.7-33.7); MCHC 33.7 g/dl (32.0-36.0); MEAN CELL VOLUME 93.7 fl (80-96); MEAN PLT VOLUME 9.2 fl (7.5-11.1); MONO % 13.1 % (3.8-10.2); NEUT % 61.4 % (42.8-82.8); PLATELET COUNT 115 10^3/uL (134-434); RBC 3.55 M/mm3 (3.60-5.2); RDW 15.1 % (11.6-15.6); WHITE BLOOD COUNT 5.3 K/mm3 (4.0-10.0)
[2021-09-11 10:39] LABS: EPITHELIAL CELLS FEW /hpf
[2021-09-11 10:40] LABS: CALCIUM OXALATE CRYSTALS FEW /hpf (NONE SEEN)
[2021-09-11] MEDS ORDERED: HEPARIN NA (PORCINE) 5,000 UNITS/ML 1ML VIAL SQ SCH (14:00)
[2021-09-11 15:42] VITALS: BMI 17.6
[2021-09-11] MEDS: LOSARTAN POTASSIUM 25 MG TABLET PO SCH (15:59)
[2021-09-11] MEDS: SERTRALINE HCL 25 MG TABLET (FP) PO SCH (15:59)
[2021-09-11] MEDS: ENOXAPARIN NA (PORCINE) 40 MG/0.4 ML DISP.SYRIN SQ SCH ×2 (15:59→16:50)
[2021-09-11] MEDS: ASPIRIN COATED 81 MG TABLET.EC PO SCH (15:59)
[2021-09-12] MEDS: LEVOTHYROXINE NA 50 MCG TABLET (FP) PO SCH (06:22)
[2021-09-12 07:46] LABS: BASO % 0.3 % (0-2.0); EOS % 0.9 % (0-4.5); HEMATOCRIT 31.9 % (32.4-45.2); LYMPH % 29.5 % (8-40); MCH 31.7 pg (25.7-33.7); MCHC 34.4 g/dl (32.0-36.0); MEAN CELL VOLUME 92.3 fl (80-96); MEAN PLT VOLUME 9.1 fl (7.5-11.1); MONO % 11.7 % (3.8-10.2); NEUT % 57.6 % (42.8-82.8); PLATELET COUNT 112 10^3/uL (134-434); RBC 3.46 M/mm3 (3.60-5.2); RDW 14.7 % (11.6-15.6); WHITE BLOOD COUNT 4.8 K/mm3 (4.0-10.0)
[2021-09-12 07:53] LABS: CHOLESTEROL 160 mg/dL (50-200); TRIGLYCERIDES 81 mg/dL (0-150)
[2021-09-12 07:54] LABS: LDL CHOLESTEROL (ONLY SJRH) 103 mg/dL (5-100)
[2021-09-12 07:56] LABS: HDL CHOLESTEROL 41 mg/dL (40-60)
[2021-09-12 09:25] LABS: BLOOD UREA NITROGEN 14.7 mg/dL (7-18); CALCIUM 7.9 mg/dL (8.5-10.1); CHLORIDE 107 mmol/L (98-107); CO2 26 mmol/L (21-32); CREATININE 0.7 mg/dL (0.55-1.3); GLUCOSE,RANDOM 80 mg/dL (74-106); SODIUM 141 mmol/L (136-145)
[2021-09-12 09:26] LABS: ALK PHOS 73 U/L (45-117); BILIRUBIN,TOTAL 0.7 mg/dL (0.2-1); MAGNESIUM 1.8 mg/dL (1.8-2.4); SGOT/AST 25 U/L (15-37); SGPT/ALT 19 U/L (13-61); TOT PROT 5.9 g/dl (6.4-8.2)
[2021-09-12] MEDS ORDERED: PITAVASTATIN CALCIUM 1 MG PO SCH (10:00)
[2021-09-12] MEDS: ASPIRIN COATED 81 MG TABLET.EC PO SCH (10:30)
[2021-09-12] MEDS: SERTRALINE HCL 25 MG TABLET (FP) PO SCH (10:30)
[2021-09-12] MEDS: LOSARTAN POTASSIUM 25 MG TABLET PO SCH (10:30)
[2021-09-12] MEDS: ENOXAPARIN NA (PORCINE) 40 MG/0.4 ML DISP.SYRIN SQ SCH (10:30)
[2021-09-13] MEDS: LEVOTHYROXINE NA 50 MCG TABLET (FP) PO SCH (06:17)
[2021-09-13 07:17] LABS: BASO % 0.5 % (0-2.0); EOS % 0.9 % (0-4.5); HEMATOCRIT 32.8 % (32.4-45.2); HEMOGLOBIN 11.1 GM/dL (10.7-15.3); LYMPH % 26.9 % (8-40); MCH 31.2 pg (25.7-33.7); MCHC 33.7 g/dl (32.0-36.0); MEAN CELL VOLUME 92.8 fl (80-96); MEAN PLT VOLUME 9.3 fl (7.5-11.1); MONO % 11.4 % (3.8-10.2); NEUT % 60.3 % (42.8-82.8); PLATELET COUNT 130 10^3/uL (134-434); RBC 3.54 M/mm3 (3.60-5.2); RDW 14.8 % (11.6-15.6); WHITE BLOOD COUNT 4.8 K/mm3 (4.0-10.0)
[2021-09-13 07:53] LABS: ALBUMIN 2.8 g/dl (3.4-5.0); BLOOD UREA NITROGEN 15.4 mg/dL (7-18); CALCIUM 8.4 mg/dL (8.5-10.1)
[2021-09-13 07:55] LABS: CREATININE 0.6 mg/dL (0.55-1.3)
[2021-09-13 07:57] LABS: BILIRUBIN,TOTAL 0.6 mg/dL (0.2-1)
[2021-09-13] MEDS ORDERED: LOSARTAN POTASSIUM 50 MG TABLET PO SCH (10:25)
[2021-09-13] MEDS ORDERED: amLODIPine BESYLATE 5 MG TABLET (FP) PO SCH (10:30)
[2021-09-13] MEDS: SERTRALINE HCL 25 MG TABLET (FP) PO SCH (11:17)
[2021-09-13] MEDS: ASPIRIN COATED 81 MG TABLET.EC PO SCH (11:17)
[2021-09-13] MEDS: ENOXAPARIN NA (PORCINE) 40 MG/0.4 ML DISP.SYRIN SQ SCH (11:17)
[2021-09-13] MEDS: LOSARTAN POTASSIUM 25 MG TABLET PO SCH (12:54)
[2021-09-13 13:55] VITALS: BP 152/59; PULSE 50; TEMP 98.3
== END 2021-09-13 15:45 | disposition home or self-care (01) | DRG 308 ==
LOC: FER 07:29 → J4W 14:41
PROVIDERS: ADMIT Internal Medicine
DX: I44.1 Atrioventricular block, second degree (principal); U07.1 COVID-19; I25.10 Atherosclerotic heart disease of native coronary artery without angina pectoris; I10 Essential (primary) hypertension; E03.9 Hypothyroidism, unspecified; I73.00 Raynaud's syndrome without gangrene; Z95.1 Presence of aortocoronary bypass graft
CPT/HCPCS: 36415; 71045-TC-FY; 80053; 80061; 81003; 81015; 83735; 84439; 84443; 84484; 85025; 85610; 85730; 86140; 86850; 86900; 86901; 93005; 99285-25; C9803-CS; U0003; U0005

== ENCOUNTER 2022-06-05 00:52 | Emergency (ER) | payer OTHER, MEDICARE ==
[2022-06-05 01:26] VITALS: PULSE 84
[2022-06-05] MEDS ORDERED: ASPIRIN 325 MG TABLET ONE (01:27)
[2022-06-05] MEDS ORDERED: ACETAMINOPHEN INJECTION 100 ML IVPB ONE (01:27)
[2022-06-05] MEDS ORDERED: ACETAMINOPHEN 1000 MG/100 ML BAG IVPB ONE (01:28)
[2022-06-05] MEDS ORDERED: ASPIRIN 81 MG CHEWABLE TABLETS ONE (01:37)
[2022-06-05 02:12] VITALS: BP 132/83; RESP 20
[2022-06-05] MEDS ORDERED: ASPIRIN 81 MG CHEWABLE TABLETS PO ONE (02:14)
[2022-06-05 02:22] LABS: HEMATOCRIT 37.7 % (32.4-45.2); HEMOGLOBIN 12.1 GM/dL (10.7-15.3); MCH 30.2 pg (25.7-33.7); MCHC 32.1 g/dl (32.0-36.0); PLATELET COUNT 149 10^3/uL (134-434); RBC 4.01 M/mm3 (3.60-5.2); RDW 15.2 % (11.6-15.6); WHITE BLOOD COUNT 8.5 K/mm3 (4.0-10.0)
[2022-06-05 02:41] LABS: CHLORIDE 104 mmol/L (98-107); SODIUM 140 mmol/L (136-145)
[2022-06-05 02:43] LABS: CALCIUM 9.5 mg/dL (8.5-10.1); GLUCOSE,RANDOM 163 mg/dL (74-106)
[2022-06-05 02:44] LABS: ALBUMIN 3.8 g/dl (3.4-5.0); ANION GAP 12 MMOL/L (8-16); CO2 24 mmol/L (21-32)
[2022-06-05 02:47] LABS: CREATININE 0.8 mg/dL (0.55-1.3); SGOT/AST 26 U/L (15-37); SGPT/ALT 18 U/L (13-61)
[2022-06-05 02:48] LABS: BILIRUBIN,TOTAL 0.6 mg/dL (0.2-1)
[2022-06-05 02:49] LABS: TOT PROT 7.4 g/dl (6.4-8.2)
[2022-06-05 02:50] LABS: ALK PHOS 79 U/L (45-117)
[2022-06-05] MEDS ORDERED: FUROSEMIDE 40 MG/4 ML INJECTABLE VIAL IVPUSH ONE (02:54)
[2022-06-05] MEDS ORDERED: FUROSEMIDE 40 MG/4 ML INJECTABLE VIAL ONE (02:55)
[2022-06-05 03:08] LABS: LACTIC ACID 3.2 mmol/L (0.4-2.0)
[2022-06-05] MEDS ORDERED: OSELTAMIVIR PHOSPHATE 75 MG CAPSULE PO ONE (03:19)
[2022-06-05] MEDS ORDERED: OSELTAMIVIR PHOSPHATE 75 MG CAPSULE ONE (03:26)
[2022-06-05 03:44] LABS: ARTERIAL BLD GAS O2 SATURATION 93.1 % (95-98); ARTERIAL BLOOD GAS BASE EXCESS -7.4 mmol/L (-2-2); ARTERIAL BLOOD GAS PO2 76.8 mmHg (80-100); ARTERIAL BLOOD GAS pH 7.243 (7.350-7.450)
[2022-06-05 03:48] LABS: ALLENS TEST POSITIVE
[2022-06-05 03:49] LABS: VENT MODE S/T; VENT RATE 14
[2022-06-05] MEDS ORDERED: EPINEPHrine 1:10,000 (P-F SYR) 1 MG/10 ML DISP.SYRIN ONE (04:03)
== END 2022-06-05 07:11 | disposition expired ==
LOC: FER 00:52
PROC: 0BH17EZ Insertion of Endotracheal Airway into Trachea, Via Natural or Artificial Opening (ICD-10-PCS; principal; 2022-06-05)
PROC: 5A12012 Performance of Cardiac Output, Single, Manual (ICD-10-PCS; 2022-06-05)
PROC: 3E033GC Introduction of Other Therapeutic Substance into Peripheral Vein, Percutaneous Approach (ICD-10-PCS; 2022-06-05)
DX: R07.9 Chest pain, unspecified (principal)
CPT/HCPCS: 0241U-QW; 36415; 36600; 71045-TC-FY; 80053; 82550; 82803; 83605; 84484; 85027; 93005; 93010; 99285-25